=== PATIENT | female | born 2000 | race Caucasian/White ===

== ENCOUNTER 2021-04-03 20:16 | Emergency (ER) | payer BC, SELFPAY ==
[2021-04-03] MEDS ORDERED: LIDOCAINE 1% MPF 5 ML VIAL ONE (21:24)
--- NOTE | 2021-04-04 12:03 | ER ---
Nurse's Notes [facility] Name: Rafaela Cabezas Age: 20 yrs Sex: Female : 2000 Arrival Date: 04/03/2021 Time: 20:34 Bed 6 Private MD: Diagnosis: Laceration with foreign body of left thumb without damage to nail Presentation: 04/03 20:37 Chief complaint: Patient states: lac to thumb (left hand), was cutting carrots. sj1 bleeding controlled, reports tetanus in last 5 yrs. Coronavirus screen: Vaccine status: Patient reports being unvaccinated. Ebola Screen: No symptoms or risks identified at this time. Complicating Factors: lac. Initial Sepsis Screen: Does the patient meet any 2 criteria? No. Patient's initial sepsis screen is negative. Does the patient have a suspected source of infection? No. Patient's initial sepsis screen is negative. Risk Assessment: Do you want to hurt yourself or someone else? Patient reports no desire to harm self or others. Onset of symptoms was April 03, 2021. 20:37 Method Of Arrival: Ambulatory [facility] 20:37 Acuity: CHRISTINA 4 sj1 Triage Assessment: 20:39 General: Appears in no apparent distress. Behavior is calm, cooperative, appropriate sj1 for age. Pain: Complains of pain in thumb, left hand. Injury Description: Laceration sustained to thumb, left hand. 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 - Social history:: Smoking status: Patient denies any tobacco usage or history of. Patient/guardian denies using alcohol, street drugs. Screenin:41 Abuse screen: Denies threats or abuse. Denies injuries from another. Has been sj1 threatened or abused. Nutritional screening: No deficits noted. Tuberculosis screening: No symptoms or risk factors identified. Fall Risk None identified. Assessment: 20:41 Musculoskeletal: No signs and/or symptoms reported regarding the musculoskeletal system.sj1 21:58 Injury Description: Laceration is clean. df1 Vital Signs: 20:37 BP 138 / 81; Pulse 67; Resp 16; Temp 98.1(O); Pulse Ox 99% on R/A; Weight 90.72 kg (R); sj1 Height 5 ft. 8 in. (172.72 cm) (R); Pain 5/10; 21:00 BP 130 / 75; Pulse 65; Resp 18; Pulse Ox 100% on R/A; df1 20:37 Body Mass Index 30.41 (90.72 kg, 172.72 cm) sj1 ED Course: 20:34 Patient arrived in ED. bp1 20:39 Triage completed. sj1 20:41 Patient has correct armband on for positive identification. sj1 20:41 Arm band placed on. sj1 20:42 Maciej Leary NP is PHCP. pm1 20:42 Hakan Varela MD is Attending Physician. pm1 20:56 Fernanda Dunn is Primary Nurse. df1 21:14 Assist provider with laceration repair on left thumb that was 2.5 cm. or less using df1 sutures. Set up tray. Performed by Maciej Leary TRANSFER MACHINE OPERATOR Dressed with band aid, Neosporin, Patient tolerated well. Patient did not have IV access during this emergency room visit. Administered Medications: 21:14 Drug: Lidocaine (1 %) 5 ml Volume: 5 ml; Route: Infiltration; Site: affected area; df1 Outcome: 21:35 Discharge ordered by . pm1 21:57 Discharged to home df1 21:57 Condition: stable 21:57 Discharge instructions given to patient, significant other, Instructed on discharge instructions, follow up and referral plans. medication usage, Demonstrated understanding of instructions, follow-up care, medications, Prescriptions given X 1. 22:01 Patient left the ED. tt3 Signatures: Maciej Leary NP TRANSFER MACHINE OPERATOR pm1 Jannet Cruz bp1 Maycol Quarles tt3 Fernanda Dunn df1 Laverne Barry RN RN sj1
--- NOTE | 2021-04-04 12:04 | EDPHYS ---
Physician Documentation [facility] Name: Rafaela Cabezas Age: 20 yrs Sex: Female : 2000 Arrival Date: 04/03/2021 Time: 20:34 Bed 6 Private MD: ED Physician Hakan Varela HPI: 04/03 20:54 This 20 yrs old Female presents to ER via Ambulatory with complaints of pm1 Laceration To Hand. 20:54 The patient has a laceration occurred at home. The laceration(s) is(are) located on the pm1 left thumb. 20:54 Onset: The symptoms/episode began/occurred just prior to arrival. Associated signs and pm1 symptoms: Pertinent negatives: deformity, heavy bleeding, numbness distal to injury, suspected foreign body. The patient has not experienced similar symptoms in the past. The patient has not recently seen a physician. Patient cut left thumb with a knife while cutting carrots. 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 - Social history:: Smoking status: Patient denies any tobacco usage or history of. Patient/guardian denies using alcohol, street drugs. ROS: 20:54 Constitutional: Negative for fever, chills, and weight loss. pm1 20:54 Cardiovascular: Negative for chest pain, palpitations, and edema, Respiratory: Negative for shortness of breath, cough, wheezing, and pleuritic chest pain. 20:54 Neuro: Negative for headache, weakness, numbness, tingling, and seizure. 20:54 MS/extremity: Positive for laceration, of the left thumb. 20:54 Skin: Positive for laceration(s), of the left thumb. 20:54 All other systems are negative. Exam: 20:54 Constitutional: This is a well developed, well nourished patient who is awake, alert, pm1 and in no acute distress. Head/Face: Normocephalic, atraumatic. 20:54 Cardiovascular: Exam negative for acute changes, Rate: normal, Rhythm: regular, Pulses: no pulse deficits are appreciated. 20:54 Respiratory: Exam negative for acute changes, respiratory distress, shortness of breath. 20:54 Skin: injury, laceration(s), the wound is approximately 1 cm(s), with a depth of 0.5 cm(s), of the left thumb, that can be described as clean, no foreign body, irregular, with mild bleeding, at the palmar tip of left thumb. 20:54 Neuro: Exam negative for acute changes, Orientation: is normal, Mentation: is normal, Motor: is normal, moves all fours, Sensation: no obvious gross deficits. Vital Signs: 20:37 BP 138 / 81; Pulse 67; Resp 16; Temp 98.1(O); Pulse Ox 99% on R/A; Weight 90.72 kg (R); sj1 Height 5 ft. 8 in. (172.72 cm) (R); Pain 5/10; 21:00 BP 130 / 75; Pulse 65; Resp 18; Pulse Ox 100% on R/A; df1 20:37 Body Mass Index 30.41 (90.72 kg, 172.72 cm) sj Laceration: 21:30 Wound Repair of 1cm ( 0.4in ) subcutaneous laceration to palmar aspect of distal pm1 phalanx of left thumb. Irregularly shaped.. Distal neuro/vascular/tendon intact. Anesthesia: Digital block administered with 2 mls of 1% lidocaine. Wound prep: Extensive cleansing with hibiclenz by me, Wound irrigation with saline by me, Wound explored extensively, Copious irrigation. Skin closed with 4 5-0 Prolene using simple sutures and sterile technique. Dressed with Neosporin, 4x4's. Patient tolerated well. MDM: 20:42 Patient medically screened. pm1 21:34 Data reviewed: vital signs. Data interpreted: Pulse oximetry: on room air is 99 %. pm1 Interpretation: normal. Counseling: I had a detailed discussion with the patient and/or guardian regarding: the historical points, exam findings, and any diagnostic results supporting the discharge/admit diagnosis, the need for outpatient follow up, to return to the emergency department if symptoms worsen or persist or if there are any questions or concerns that arise at home. 04/03 20:47 Order name: Dressing - Wound; Complete Time: 21:08 pm1 04/03 20:47 Order name: Gloves, Sterile; Complete Time: 21:08 pm1 04/03 20:47 Order name: Prolene, Sutures; Complete Time: 21:08 pm1 04/03 20:47 Order name: Setup Suture Tray; Complete Time: 21:08 pm1 Administered Medications: 21:14 Drug: Lidocaine (1 %) 5 ml Volume: 5 ml; Route: Infiltration; Site: affected area; df1 Disposition: 04/04 08:44 Co-signature as Attending Physician, Hakan Varela MD I agree with the assessment and jennifer plan of care. Chart complete. Disposition Summary: 04/03/21 21:35 Discharge Ordered Location: Home pm1 Problem: new pm1 Symptoms: have improved pm1 Condition: Stable pm1 Diagnosis - Laceration with foreign body of left thumb without damage to nail pm1 Followup: pm1 - With: Emergency Department - When: As needed - Reason: Worsening of condition Followup: pm1 - With: Private Physician - When: 10 - 14 days - Reason: Recheck today's complaints, Continuance of care, Staple/Suture removal, Re-evaluation by your physician Discharge Instructions: - Discharge Summary Sheet pm1 - Laceration Care, Adult pm1 Forms: - Medication Reconciliation Form pm1 - Thank You Letter pm1 - Antibiotic Education pm1 - Prescription Opioid Use pm1 Prescriptions: - Cephalexin 500 mg Oral Capsule - take 1 capsule by ORAL route every 12 hours for 10 days; 20 capsule; Refills: pm1 0, Product Selection Permitted Signatures: Hakan Varela MD MD cha Marinas, Patrick, NP CARD MAKER pm1 Fernanda Dunn df1 Laverne Barry RN RN sj1 Corrections: (The following items were deleted from the chart) 04/03 21:33 20:54 The laceration(s) is(are) located on the right thumb, pm1 pm1
[2021-04-04 12:08] VITALS: TEMP 98.1
[2021-04-04 12:09] VITALS: BP 130/75; O2SAT 100
== END 2021-04-03 22:01 | disposition home or self-care (01) ==
LOC: ER 20:16
PROC: 0JQK0ZZ Repair Left Hand Subcutaneous Tissue and Fascia, Open Approach (ICD-10-PCS; principal; 2021-04-03)
DX: S61.012A Laceration without foreign body of left thumb without damage to nail, initial encounter (principal); W26.0XXA Contact with knife, initial encounter; Y93.G3 Activity, cooking and baking; Y92.010 Kitchen of single-family (private) house as the place of occurrence of the external cause
CPT/HCPCS: 99283

== ENCOUNTER 2024-09-15 19:50 | Emergency (ER) | payer BC, OTHER ==
--- OUTSIDE RECORDS SUMMARY | 2024-09-15 19:55 | XMS REPORT | Continuity of Care Document ---
Author Name Unknown Address [address] [facility] [address] [place] [address] [facility] Address [address] [facility] [address] [place] [address] Care Team Providers Care Associate Drafter Name Role Phone Greta HiZaria Primary Care Physician [phone] Rosa Elena Mendiola Attending Clinician Unavailab Flori Celeste Attending Clinician Unavailable Flori Akins Attending Clinician [phone] BARBARA BAILEY Attending Clinician Unavailable Barbara Bailey PA-C Attending Clinician [phone] Unknown, Attending Attending Clinician Unavailab le GRAIR_D Attending Clinician Unavailable Doctor Unassigned, [place] Attending Clinician Natalie Lomax Attending Clinician Unavailab le GRAIR_D Admitting Clinician Unavailable Payers Payer Name Policy Type Policy Number Effective Date Expirati on Date Source Problems Condition Name Condition Details Condition Category Status Onset Date Resolution Date Last Treatment Date Treating Clinician Comments Source Encounter for surveillan ce of nuvaring Encounter for surveillan ce of nuvaring Disease Active 09-29 00:00: 00 Overview: Formattin g of this note might be different from the original. Nuvaring started in July 2018. [facility] Major depressive disorder Major depressive disorder Disease Active 09-29 00:00: 00 Overview: Formattin g of this note might be different from the original. 09/29/18 - referral to anna fay [facility] Allergies, Adverse Reactions, Alerts Allergy Name Allergy Type Status Severity Reaction(s) Onset Date Inactive Date Treating Clinician Comments Source No Known Drug Allergie s DA Active U 07-26 00:00: 00 [facility] cinnamon DA Active U Swelling of Lip/Tongue/T hroat 07-26 00:00: 00 [facility] almond DA Active U Swelling of Lip/Tongue/T hroat 07-26 00:00: 00 [facility] NO KNOWN ALLERGIE S Drug Class Active [facility] Social History Social Habit Start Date Stop Date Quantity Comments Source History of tobacco use [facility]ive [facility]oker [facility] of Social function 2018-12-18 00:00:00 2018-12-18 00:00:00 [facility] Alcohol intake 2018-10-17 00:00:00 2018-10-17 00:00:00 Current non-drinker of alcohol (finding) [facility] Alcoholic beverage intake 2017-03-14 00:00:00 2017-03-14 00:00:00 0 /d [facility] Tobacco use and exposure 2015-05-11 00:00:00 2015-05-11 00:00:00 Smokeless tobacco non-user [facility] Tobacco Comment 2015-05-11 00:00:00 2015-05-11 00:00:00 Step-father smokes outside [facility] Sex assigned at 2000 00:00:00 2000 00:00:00 [facility] Smoking Status Start Date Stop Date Source Never smoked tobacco [facility] Medications Ordered Medication Name Filled Medication Name Start Date Stop Date Current Medication? Ordering Clinician Indication Dosage Frequency Signature (SIG) Comments Components Source amoxicillin -clavulanat e (AUGMENTIN) 875-125 mg per tablet 11-06 00:00: 00 Yes [id number] 1{tbl} Take 1 tablet by mouth in the morning and 1 tablet in the evening. [facility] NUVARING 0.12-0.015 mg/24 hr vaginal insert 08-26 00:00: 00 Yes INSERT 1 RING VAINALLY AND LEAVE IN PLACE FOR 3 WEEKS THEN REMOVE FOR 1 WEEK [facility] naproxen (EC-NAPROSY N) 375 mg EC tablet 02-02 00:00: 00 Yes 375mg Take 1 tablet by mouth 2 (two) times daily with meals. [facility] Immunizations Ordered Immunization Name Filled Immunization Name Date Status Comments Source TDAP 2023-11-07 12:43:00 Completed [facility] TDAP 2023-11-07 11:18:06 Completed [facility] TDAP 2023-11-07 10:40:00 Completed [facility] Vital Signs Vital Name Observation Time Observation Value Comments S ource Systolic blood pressure 2023-11-07 18:21:00 125 mm[Hg] [facility] Diastolic blood pressure 2023-11-07 18:21:00 83 mm[Hg] [facility] Heart rate 2023-11-07 18:21:00 62 /min [facility] Body temperature 2023-11-07 18:21:00 36.89 Minda [facility] Respiratory rate 2023-11-07 18:21:00 15 /min [facility] Oxygen saturation in Arterial blood by Pulse oximetry 2023-11-07 18:21:00 98 /min [facility] Body height 2023-11-07 17:42:00 175.3 cm [facility] Body weight 2023-11-07 17:42:00 90.719 kg [facility] BMI 2023-11-07 17:42:00 29.53 kg/m2 [facility] Oxygen saturation in Arterial blood by Pulse oximetry 2023-11-07 16:09:00 98 /min [facility] Systolic blood pressure 2023-11-07 16:09:00 136 mm[Hg] [facility] Diastolic blood pressure 2023-11-07 16:09:00 85 mm[Hg] Tell o [facility] Heart rate 2023-11-07 16:09:00 65 /min [facility] 2023-11-07 16:09:00 37 Minda [facility] Respiratory rate 2023-11-07 16:09:00 18 /min [facility] Body height 2023-11-07 16:09:00 175.3 cm [facility] Body weight 2023-11-07 16:09:00 90.719 kg [facility] BMI 2023-11-07 16:09:00 29.53 kg/m2 [facility] KHADIJAH CHARGE Pulse Oximetry 2020-08-01 18:32:38 Single Pulse Ox /min NB Weight 2020-08-01 18:32:38 2630.836\S\92.8 Have you Lost Weight Without Trying in the Past 6 Months? 2020-08-01 18:32:38 No Heart Rate 2020-08-01 18:32:38 125 /min Attempted 2020-08-01 18:32:38 N Respiratory 2020-08-01 18:32:38 No respirato ry distress /min 02 Sat by Pulse Oximetry 2020-08-01 18:32:38 98 /min Body Mass Index 2020-08-01 18:32:38 34.5 Height 2020-08-01 18:32:38 170.18\S\67 Pulse Rate 2020-08-01 18:32:38 72 /min Pulse Strength 2020-08-01 18:32:38 Normal /min Pulse Assessment Method 2020-08-01 18:32:38 Auscultation /min Respiratory Rate 2020-08-01 18:32:38 19 /min Respiratory Depth 2020-08-01 18:32:38 Normal /min Respiratory Effort 2020-08-01 18:32:38 Spontaneous /min Respiratory Pattern 2020-08-01 18:32:38 Normal /min Temperature 2020-08-01 18:32:38 36.9\S\98.4 Weight 2020-08-01 18:32:38 92622.321\S\3520 Weight Measurement Method 2020-08-01 18:32:38 Standing Scale NB Weight 2020-07-30 17:59:41 2630.836\S\92.8 Have you Lost Weight Without Trying in the Past 6 Months? 2020-07-30 17:59:41 No Heart Rate 2020-07-30 17:59:41 125 /min Attempted 2020-07-30 17:59:41 N Respiratory 2020-07-30 17:59:41 No respirato ry distress /min 02 Sat by Pulse Oximetry 2020-07-30 17:59:41 98 /min Body Mass Index 2020-07-30 17:59:41 34.5 Height 2020-07-30 17:59:41 170.18\S\67 Pulse Rate 2020-07-30 17:59:41 72 /min Pulse Strength 2020-07-30 17:59:41 Normal /min Pulse Assessment Method 2020-07-30 17:59:41 Auscultation /min Respiratory Rate 2020-07-30 17:59:41 19 /min Respiratory Depth 2020-07-30 17:59:41 Normal /min Respiratory Effort 2020-07-30 17:59:41 Spontaneous /min Respiratory Pattern 2020-07-30 17:59:41 Normal /min Temperature 2020-07-30 17:59:41 36.9\S\98.4 Weight 2020-07-30 17:59:41 24330.321\S\3520 Weight Measurement Method 2020-07-30 17:59:41 Standing Scale NB Weight 2020-07-30 17:59:40 2630.836\S\92.8 Have you Lost Weight Without Trying in the Past 6 Months? 2020-07-30 17:59:40 No Heart Rate 2020-07-30 17:59:40 125 /min Attempted 2020-07-30 17:59:40 N Respiratory 2020-07-30 17:59:40 No respirato ry distress /min 02 Sat by Pulse Oximetry 2020-07-30 17:59:40 98 /min Body Mass Index 2020-07-30 17:59:40 34.5 Height 2020-07-30 17:59:40 170.18\S\67 Pulse Rate 2020-07-30 17:59:40 72 /min Pulse Strength 2020-07-30 17:59:40 Normal /min Pulse Assessment Method 2020-07-30 17:59:40 Auscultation /min Respiratory Rate 2020-07-30 17:59:40 19 /min Respiratory Depth 2020-07-30 17:59:40 Normal /min Respiratory Effort 2020-07-30 17:59:40 Spontaneous /min Respiratory Pattern 2020-07-30 17:59:40 Normal /min Temperature 2020-07-30 17:59:40 36.9\S\98.4 Weight 2020-07-30 17:59:40 30188.321\S\3520 Weight Measurement Method 2020-07-30 17:59:40 Standing Scale KHADIJAH CHARGE Pulse Oximetry 2020-07-30 17:59:40 Single Pulse Ox /min KHADIJAH CHARGE Pulse Oximetry 2020-07-30 16:58:54 Single Pulse Ox /min NB Weight 2020-07-30 16:58:54 2630.836\S\92.8 Have you Lost Weight Without Trying in the Past 6 Months? 2020-07-30 16:58:54 No Heart Rate 2020-07-30 16:58:54 125 /min Attempted 2020-07-30 16:58:54 N Respiratory 2020-07-30 16:58:54 No respirato ry distress /min 02 Sat by Pulse Oximetry 2020-07-30 16:58:54 98 /min Body Mass Index 2020-07-30 16:58:54 34.5 Height 2020-07-30 16:58:54 170.18\S\67 Pulse Rate 2020-07-30 16:58:54 72 /min Pulse Strength 2020-07-30 16:58:54 Normal /min Pulse Assessment Method 2020-07-30 16:58:54 Auscultation /min Respiratory Rate 2020-07-30 16:58:54 19 /min Respiratory Depth 2020-07-30 16:58:54 Normal /min Respiratory Effort 2020-07-30 16:58:54 Spontaneous /min Respiratory Pattern 2020-07-30 16:58:54 Normal /min Temperature 2020-07-30 16:58:54 36.9\S\98.4 Weight 2020-07-30 16:58:54 09660.321\S\3520 Weight Measurement Method 2020-07-30 16:58:54 Standing Scale KHADIJAH CHARGE Pulse Oximetry 2020-07-29 13:59:12 Single Pulse Ox /min NB Weight 2020-07-29 13:59:12 2630.836\S\92.8 Have you Lost Weight Without Trying in the Past 6 Months? 2020-07-29 13:59:12 No Heart Rate 2020-07-29 13:59:12 125 /min Attempted 2020-07-29 13:59:12 N Respiratory 2020-07-29 13:59:12 No respirato ry distress /min 02 Sat by Pulse Oximetry 2020-07-29 13:59:12 97 /min Body Mass Index 2020-07-29 13:59:12 34.5 Height 2020-07-29 13:59:12 170.18\S\67 Pulse Rate 2020-07-29 13:59:12 68 /min Pulse Strength 2020-07-29 13:59:12 Normal /min Pulse Assessment Method 2020-07-29 13:59:12 Auscultation /min Respiratory Rate 2020-07-29 13:59:12 18 /min Respiratory Depth 2020-07-29 13:59:12 Normal /min Respiratory Effort 2020-07-29 13:59:12 Normal fo r Patient /min Respiratory Pattern 2020-07-29 13:59:12 Normal /min Temperature 2020-07-29 13:59:12 36.6\S\97.9 Weight 2020-07-29 13:59:12 19057.321\S\3520 Weight Measurement Method 2020-07-29 13:59:12 Standing Scale KHADIJAH CHARGE Pulse Oximetry 2020-07-29 13:14:41 Single Pulse Ox /min NB Weight 2020-07-29 13:14:41 2630.836\S\92.8 Have you Lost Weight Without Trying in the Past 6 Months? 2020-07-29 13:14:41 No Heart Rate 2020-07-29 13:14:41 125 /min Attempted 2020-07-29 13:14:41 N Respiratory 2020-07-29 13:14:41 No respirato ry distress /min 02 Sat by Pulse Oximetry 2020-07-29 13:14:41 97 /min Body Mass Index 2020-07-29 13:14:41 34.5 Height 2020-07-29 13:14:41 170.18\S\67 Pulse Rate 2020-07-29 13:14:41 68 /min Pulse Strength 2020-07-29 13:14:41 Normal /min Pulse Assessment Method 2020-07-29 13:14:41 Auscultation /min Respiratory Rate 2020-07-29 13:14:41 18 /min Respiratory Depth 2020-07-29 13:14:41 Normal /min Respiratory Effort 2020-07-29 13:14:41 Normal fo r Patient /min Respiratory Pattern 2020-07-29 13:14:41 Normal /min Temperature 2020-07-29 13:14:41 36.6\S\97.9 Weight 2020-07-29 13:14:41 34416.321\S\3520 Weight Measurement Method 2020-07-29 13:14:41 Standing Scale KHADIJAH CHARGE Pulse Oximetry 2020-07-28 22:24:53 Single Pulse Ox /min NB Weight 2020-07-28 22:24:53 2630.836\S\92.8 Have you Lost Weight Without Trying in the Past 6 Months? 2020-07-28 22:24:53 No Heart Rate 2020-07-28 22:24:53 125 /min Attempted 2020-07-28 22:24:53 N Respiratory 2020-07-28 22:24:53 No respirato ry distress /min 02 Sat by Pulse Oximetry 2020-07-28 22:24:53 99 /min Body Mass Index 2020-07-28 22:24:53 34.5 Height 2020-07-28 22:24:53 170.18\S\67 Pulse Rate 2020-07-28 22:24:53 74 /min Pulse Strength 2020-07-28 22:24:53 Normal /min Pulse Assessment Method 2020-07-28 22:24:53 Auscultation /min Respiratory Rate 2020-07-28 22:24:53 18 /min Respiratory Depth 2020-07-28 22:24:53 Normal /min Respiratory Effort 2020-07-28 22:24:53 Spontaneous /min Respiratory Pattern 2020-07-28 22:24:53 Normal /min Temperature 2020-07-28 22:24:53 36.7\S\98.1 Weight 2020-07-28 22:24:53 98818.321\S\3520 Weight Measurement Method 2020-07-28 22:24:53 Standing Scale KHADIJAH CHARGE Pulse Oximetry 2020-07-28 20:21:41 Single Pulse Ox /min NB Weight 2020-07-28 20:21:41 2630.836\S\92.8 Have you Lost Weight Without Trying in the Past 6 Months? 2020-07-28 20:21:41 No Heart Rate 2020-07-28 20:21:41 125 /min Attempted 2020-07-28 20:21:41 N Respiratory 2020-07-28 20:21:41 No respirato ry distress /min Body Mass Index 2020-07-28 20:21:41 34.5 Height 2020-07-28 20:21:41 170.18\S\67 Pulse Strength 2020-07-28 20:21:41 Normal /min Pulse Assessment Method 2020-07-28 20:21:41 Auscultation /min Respiratory Rate 2020-07-28 20:21:41 16 /min Respiratory Depth 2020-07-28 20:21:41 Normal /min Respiratory Effort 2020-07-28 20:21:41 Spontaneous /min Respiratory Pattern 2020-07-28 20:21:41 Normal /min Temperature 2020-07-28 20:21:41 98.5\S\209.3 Weight 2020-07-28 20:21:41 07175.321\S\3520 Weight Measurement Method 2020-07-28 20:21:41 Standing Scale KHADIJAH CHARGE Pulse Oximetry 2020-07-28 17:18:01 Single Pulse Ox /min Have you Lost Weight Without Trying in the Past 6 Months? 2020-07-28 17:18:01 No Heart Rate 2020-07-28 17:18:01 125 /min Respiratory 2020-07-28 17:18:01 No respirato ry distress /min Body Mass Index 2020-07-28 17:18:01 34.5 Height 2020-07-28 17:18:01 170.18\S\67 Pulse Strength 2020-07-28 17:18:01 Normal /min Pulse Assessment Method 2020-07-28 17:18:01 Auscultation /min Respiratory Rate 2020-07-28 17:18:01 18 /min Respiratory Depth 2020-07-28 17:18:01 Normal /min Respiratory Effort 2020-07-28 17:18:01 Spontaneous /min Respiratory Pattern 2020-07-28 17:18:01 Normal /min Temperature 2020-07-28 17:18:01 37.3\S\99.1 Weight 2020-07-28 17:18:01 75761.321\S\3520 Weight Measurement Method 2020-07-28 17:18:01 Standing Scale KHADIJAH CHARGE Pulse Oximetry 2020-07-28 16:02:09 Single Pulse Ox /min Have you Lost Weight Without Trying in the Past 6 Months? 2020-07-28 16:02:09 No Heart Rate 2020-07-28 16:02:09 125 /min Respiratory 2020-07-28 16:02:09 No respirato ry distress /min Body Mass Index 2020-07-28 16:02:09 34.5 Height 2020-07-28 16:02:09 170.18\S\67 Pulse Strength 2020-07-28 16:02:09 Normal /min Pulse Assessment Method 2020-07-28 16:02:09 Auscultation /min Respiratory Rate 2020-07-28 16:02:09 18 /min Respiratory Depth 2020-07-28 16:02:09 Normal /min Respiratory Effort 2020-07-28 16:02:09 Spontaneous /min Respiratory Pattern 2020-07-28 16:02:09 Normal /min Temperature 2020-07-28 16:02:09 37.3\S\99.1 Weight 2020-07-28 16:02:09 96670.321\S\3520 Weight Measurement Method 2020-07-28 16:02:09 Standing Scale Heart Rate 2020-07-28 16:01:38 125 /min Respiratory 2020-07-28 16:01:38 No respirato ry distress /min Body Mass Index 2020-07-28 16:01:38 34.5 Height 2020-07-28 16:01:38 170.18\S\67 Pulse Strength 2020-07-28 16:01:38 Normal /min Pulse Assessment Method 2020-07-28 16:01:38 Auscultation /min Respiratory Rate 2020-07-28 16:01:38 18 /min Respiratory Depth 2020-07-28 16:01:38 Normal /min Respiratory Effort 2020-07-28 16:01:38 Spontaneous /min Respiratory Pattern 2020-07-28 16:01:38 Normal /min Temperature 2020-07-28 16:01:38 37.3\S\99.1 Weight 2020-07-28 16:01:38 20326.321\S\3520 Weight Measurement Method 2020-07-28 16:01:38 Standing Scale KHADIJAH CHARGE Pulse Oximetry 2020-07-28 16:01:37 Single Pulse Ox /min Have you Lost Weight Without Trying in the Past 6 Months? 2020-07-28 16:01:37 No KHADIJAH CHARGE Pulse Oximetry 2020-07-28 16:00:33 Single Pulse Ox /min Have you Lost Weight Without Trying in the Past 6 Months? 2020-07-28 16:00:33 No Heart Rate 2020-07-28 16:00:33 125 /min Respiratory 2020-07-28 16:00:33 No respirato ry distress /min Body Mass Index 2020-07-28 16:00:33 34.5 Height 2020-07-28 16:00:33 170.18\S\67 Pulse Strength 2020-07-28 16:00:33 Normal /min Pulse Assessment Method 2020-07-28 16:00:33 Auscultation /min Respiratory Rate 2020-07-28 16:00:33 18 /min Respiratory Depth 2020-07-28 16:00:33 Normal /min Respiratory Effort 2020-07-28 16:00:33 Spontaneous /min Respiratory Pattern 2020-07-28 16:00:33 Normal /min Temperature 2020-07-28 16:00:33 37.3\S\99.1 Weight 2020-07-28 16:00:33 88547.321\S\3520 Weight Measurement Method 2020-07-28 16:00:33 Standing Scale KHADIJAH CHARGE Pulse Oximetry 2020-07-28 11:18:03 Single Pulse Ox /min Have you Lost Weight Without Trying in the Past 6 Months? 2020-07-28 11:18:03 No Heart Rate 2020-07-28 11:18:03 125 /min Respiratory 2020-07-28 11:18:03 No respirato ry distress /min Body Mass Index 2020-07-28 11:18:03 34.5 Height 2020-07-28 11:18:03 170.18\S\67 Pulse Strength 2020-07-28 11:18:03 Normal /min Pulse Assessment Method 2020-07-28 11:18:03 Auscultation /min Respiratory Rate 2020-07-28 11:18:03 20 /min Respiratory Depth 2020-07-28 11:18:03 Normal /min Respiratory Effort 2020-07-28 11:18:03 Spontaneous /min Respiratory Pattern 2020-07-28 11:18:03 Normal /min Temperature 2020-07-28 11:18:03 36.7\S\98.0 Weight 2020-07-28 11:18:03 87549.321\S\3520 Weight Measurement Method 2020-07-28 11:18:03 Standing Scale KHADIJAH CHARGE Pulse Oximetry 2020-07-28 11:17:02 Single Pulse Ox /min Have you Lost Weight Without Trying in the Past 6 Months? 2020-07-28 11:17:02 No Heart Rate 2020-07-28 11:17:02 125 /min Respiratory 2020-07-28 11:17:02 No respirato ry distress /min Body Mass Index 2020-07-28 11:17:02 34.5 Height 2020-07-28 11:17:02 170.18\S\67 Pulse Strength 2020-07-28 11:17:02 Normal /min Pulse Assessment Method 2020-07-28 11:17:02 Auscultation /min Respiratory Rate 2020-07-28 11:17:02 20 /min Respiratory Depth 2020-07-28 11:17:02 Normal /min Respiratory Effort 2020-07-28 11:17:02 Spontaneous /min Respiratory Pattern 2020-07-28 11:17:02 Normal /min Temperature 2020-07-28 11:17:02 36.7\S\98.0 Weight 2020-07-28 11:17:02 26276.321\S\3520 Weight Measurement Method 2020-07-28 11:17:02 Standing Scale Have you Lost Weight Without Trying in the Past 6 Months? 2020-07-27 15:48:11 No Respiratory 2020-07-27 15:48:11 No respirato ry distress /min Body Mass Index 2020-07-27 15:48:11 34.5 Height 2020-07-27 15:48:11 170.18\S\67 Pulse Strength 2020-07-27 15:48:11 Normal /min Pulse Assessment Method 2020-07-27 15:48:11 Auscultation /min Respiratory Depth 2020-07-27 15:48:11 Normal /min Respiratory Effort 2020-07-27 15:48:11 Spontaneous /min Respiratory Pattern 2020-07-27 15:48:11 Normal /min Weight 2020-07-27 15:48:11 51478.321\S\3520 Weight Measurement Method 2020-07-27 15:48:11 Standing Scale Have you Lost Weight Without Trying in the Past 6 Months? 2020-07-27 06:19:24 No Respiratory 2020-07-27 06:19:24 No respirato ry distress /min Body Mass Index 2020-07-27 06:19:24 34.5 Height 2020-07-27 06:19:24 170.18\S\67 Pulse Strength 2020-07-27 06:19:24 Normal /min Pulse Assessment Method 2020-07-27 06:19:24 Auscultation /min Respiratory Depth 2020-07-27 06:19:24 Normal /min Respiratory Effort 2020-07-27 06:19:24 Spontaneous /min Respiratory Pattern 2020-07-27 06:19:24 Normal /min Weight 2020-07-27 06:19:24 67063.321\S\3520 Weight Measurement Method 2020-07-27 06:19:24 Standing Scale Respiratory 2020-07-27 02:59:13 No respirato ry distress /min Body Mass Index 2020-07-27 02:59:13 34.5 Height 2020-07-27 02:59:13 170.18\S\67 Pulse Strength 2020-07-27 02:59:13 Normal /min Pulse Assessment Method 2020-07-27 02:59:13 Auscultation /min Respiratory Depth 2020-07-27 02:59:13 Normal /min Respiratory Effort 2020-07-27 02:59:13 Spontaneous /min Respiratory Pattern 2020-07-27 02:59:13 Normal /min Weight 2020-07-27 02:59:13 77826.321\S\3520 Weight Measurement Method 2020-07-27 02:59:13 Standing Scale Have you Lost Weight Without Trying in the Past 6 Months? 2020-07-27 02:59:12 No Have you Lost Weight Without Trying in the Past 6 Months? 2020-07-27 00:18:07 No Respiratory 2020-07-27 00:18:07 No respirato ry distress /min Body Mass Index 2020-07-27 00:18:07 34.5 Height 2020-07-27 00:18:07 170.18\S\67 Pulse Strength 2020-07-27 00:18:07 Normal /min Pulse Assessment Method 2020-07-27 00:18:07 Auscultation /min Respiratory Depth 2020-07-27 00:18:07 Normal /min Respiratory Effort 2020-07-27 00:18:07 Spontaneous /min Respiratory Pattern 2020-07-27 00:18:07 Normal /min Weight 2020-07-27 00:18:07 79861.321\S\3520 Weight Measurement Method 2020-07-27 00:18:07 Standing Scale Respiratory 2020-07-26 23:58:27 No respirato ry distress /min Body Mass Index 2020-07-26 23:58:27 34.5 Height 2020-07-26 23:58:27 170.18\S\67 Pulse Strength 2020-07-26 23:58:27 Normal /min Pulse Assessment Method 2020-07-26 23:58:27 Auscultation /min Respiratory Depth 2020-07-26 23:58:27 Normal /min Respiratory Effort 2020-07-26 23:58:27 Spontaneous /min Respiratory Pattern 2020-07-26 23:58:27 Normal /min Weight 2020-07-26 23:58:27 01237.321\S\3520 Weight Measurement Method 2020-07-26 23:58:27 Standing Scale Have you Lost Weight Without Trying in the Past 6 Months? 2020-07-26 23:58:27 No Have you Lost Weight Without Trying in the Past 6 Months? 2020-07-26 23:57:57 No Respiratory 2020-07-26 23:57:57 No respirato ry distress /min Body Mass Index 2020-07-26 23:57:57 34.5 Height 2020-07-26 23:57:57 170.18\S\67 Pulse Strength 2020-07-26 23:57:57 Normal /min Pulse Assessment Method 2020-07-26 23:57:57 Auscultation /min Respiratory Depth 2020-07-26 23:57:57 Normal /min Respiratory Effort 2020-07-26 23:57:57 Spontaneous /min Respiratory Pattern 2020-07-26 23:57:57 Normal /min Weight 2020-07-26 23:57:57 34746.321\S\3520 Weight Measurement Method 2020-07-26 23:57:57 Standing Scale Have you Lost Weight Without Trying in the Past 6 Months? 2020-07-26 23:51:19 No Respiratory 2020-07-26 23:51:19 No respirato ry distress /min Body Mass Index 2020-07-26 23:51:19 34.5 Height 2020-07-26 23:51:19 170.18\S\67 Pulse Strength 2020-07-26 23:51:19 Normal /min Pulse Assessment Method 2020-07-26 23:51:19 Auscultation /min Respiratory Depth 2020-07-26 23:51:19 Normal /min Respiratory Effort 2020-07-26 23:51:19 Spontaneous /min Respiratory Pattern 2020-07-26 23:51:19 Normal /min Weight 2020-07-26 23:51:19 78662.321\S\3520 Weight Measurement Method 2020-07-26 23:51:19 Standing Scale WEIGHT 2020-07-26 22:05:00 99.947803 kg HEIGHT 2020-07-26 22:05:00 170.18 cm Respiratory 2020-07-26 21:20:16 No respirato ry distress /min Body Mass Index 2020-07-26 21:20:16 34.4 Height 2020-07-26 21:20:16 170.18\S\67 Respiratory Depth 2020-07-26 21:20:16 Normal /min Respiratory Effort 2020-07-26 21:20:16 Spontaneous /min Respiratory Pattern 2020-07-26 21:20:16 Normal /min Weight 2020-07-26 21:20:16 05874.321\S\3520 Respiratory 2020-07-26 21:00:17 No respirato ry distress /min Body Mass Index 2020-07-26 21:00:17 34.4 Height 2020-07-26 21:00:17 170.18\S\67 Respiratory Depth 2020-07-26 21:00:17 Normal /min Respiratory Effort 2020-07-26 21:00:17 Spontaneous /min Respiratory Pattern 2020-07-26 21:00:17 Normal /min Weight 2020-07-26 21:00:17 86847.321\S\3520 Body Mass Index 2020-07-26 18:10:15 34.4 Height 2020-07-26 18:10:15 170.18\S\67 Weight 2020-07-26 18:10:15 79746.321\S\3520 Body Mass Index 2020-07-26 18:00:25 34.4 Height 2020-07-26 18:00:25 170.18\S\67 Weight 2020-07-26 18:00:25 95707.321\S\3520 Body Mass Index 2020-07-26 18:00:24 34.4 Height 2020-07-26 18:00:24 170.18\S\67 Weight 2020-07-26 18:00:24 45490.321\S\3520 WEIGHT 2020-07-26 18:00:00 99.116957 kg HEIGHT 2020-07-26 18:00:00 170.18 cm Procedures Procedure Date / Time Performed Performing Clinicia n Source XR HAND 3+ VW LEFT 2023-11-07 16:24:24 Barbara Bailey [facility] TDAP VACCINE, >11 YRS, IM 2023-11-07 16:18:04 Barbara Bailey [facility] CLINIC RECORD / SMR 2020-12-19 05:01:00 Doctor David grossman, [place] [facility] CONSENT/REFUSAL FOR DIAGNOSIS AND TREATMENT 2017-04-24 21:26:09 Doctor Unassigned, [place] [facility] CONSENT/REFUSAL FOR DIAGNOSIS AND TREATMENT 2017-04-24 21:25:54 Doctor Unassigned, [place] [facility] ASSIGNMENT OF BENEFITS 2017-04-24 21:25:25 Docto r Unassigned, [place] [facility] Encounters Start Date/Time End Date/Time Encounter Type Admission Type Attending [facility] Facility Care Department Encounter ID Source 2017-04-24 00:00:00 2024-07-25 03:33:24 Orders Only [phone] [id number] [facility] 2023-11-07 12:43:00 2023-11-07 14:07:00 Emergency X Flori BRITTON [facility] ERT [id number] [facility] 2023-11-07 12:43:00 2023-11-07 14:07:00 Emergency Flori Britton [facility] 1..840.114 [id number] [id number] [facility] 2023-11-07 11:18:06 2023-11-07 12:42:00 Outpatient R BARBARA BAILEY [facility] [id number] [facility] 2023-11-07 11:18:06 2023-11-07 12:42:00 Hospital Encounter [facility] [id number] [id number] [id number] [facility] 2023-11-07 10:40:00 2023-11-07 11:55:02 Urgent Care Barbara Bailey Unknown, Attending [facility] [id number] [id number] [id number] [facility] 2021-11-14 12:29:00 2021-11-14 12:29:00 Outpatient GRAIR_D [place] [facility] [id number] [facility] 2020-12-19 00:00:00 2020-12-19 00:00:00 Orders Only Doctor Unassigned, [place] [facility] [id number] [id number] [id number] [id number] [facility] 2020-07-26 17:56:00 2020-07-26 17:56:00 Outpatient Natalie Woods [facility] [id number] [facility] 2020-07-26 17:56:00 2020-07-26 17:56:00 Outpatient [facility] [id number] [facility] 2019-08-24 15:00:00 2019-08-24 15:00:00 Outpatient BARBARA SALEEM [facility] [id number] [facility] 2019-08-24 15:00:00 2019-08-24 15:00:00 Outpatient BARBARA SALEEM [facility] [id number] [facility] Results Test Description Test Time Test Comments Results Resul t Comments Source XR HAND 3+ VW LEFT 2023-11-07 17:07:36 EXAM: XR HAND 3+ VW LEFT HISTORY: 23 years-old Female with left hand cat bite COMPARISON: None. FINDINGS: Radiographs of the left hand demonstrate no acute fractures ordislocations. Joint spaces are preserved. Alignment is within normallimits. The soft tissues are unremarkable. [facility] Rapid Plasma [id number] 17:15:00* Test Item Value Reference Range Interpretation Comme nts Rapid Plasma Reagin (test co de = RPR) Non-Reactive Non-React Patient Consent on File YHepatitis B Surface [id number] 17:15:00* Test Item Value Reference Range Interpretation Comme nts Hepatitis B Surface Antigen (test code = HBSAG) Non-Reactive NonReactive NormalUnknown fl ag:, (Final Result Ru) Patient Consent on File YHIV AG/AB [id number] 17:15:00* Test Item Value Reference Range Interpretation Comme nts HIV 1/2 AB (test code = HIVAB) Non Reactive Non React HIV p24 AG (test code = HIVAG) Non Reactive Non React Patient Consent on File YLactate [id number] 19:00:00* Test Item Value Reference Range Interpretation Comme nts Lactate Dehydrogenase (test code = LDH) 198 U/L 120-246 N Protein/Creatinine Ratio,[id number] 19:00:00* Test Item Value Reference Range Interpretation Comme nts Total Protein,Urine Random (test code = TPU) mmol/L 1.0-14.0 result to foll ow Creatinine,Urine Random (test code = CREU) 38.6 mg/dL 10.0-300.0 N Protein/Creatinine Ratio,Urine (test code = PROUCRE) Ratio result to follow UA, Urinalysis [id number] 19:00:00* Test Item Value Reference Range Interpretation Comme nts Color,Urine (test code = UCOL) Yellow Yellow Clarity,Urine (test code = UCLAR) Clear Clear PH,Urine (test code = UPH.XX) 6.5 5.5-8.5 Specific [place],Urine (test code = USG) 1.025 1.005-1.030 N Blood,Urine (test code = UBLD) Negative cells/uL Negative Protein,Urine (test code = UPRO) Negative mg/dL Negative Glucose,Urine (UA) (test code = UGLU) Negative mg/dL Negative Ketones,Urine (test code = UKET) 15 mg/dL Negative A Nitrate,Urine (test code = UNIT) Negative Negative Bilirubin,Urine (test code = UBIL) Negative mg/dL Negative Urobilinogen,Urine (test code = UURO) 0.2 mg/dL Negative Leukocyte Esterase,Urine (test code = ULEU) Negative cells/uL Negative Complete Blood Count Auto [id number] 19:00:00* Test Item Value Reference Range Interpretation Comme nts White Blood Count (test code = WBCT) 15.0 x10 3/uL 4.4-10.5 H Red Blood Count (test code = RBC) 4.15 x10 6/uL 3.75-5.20 N Hemoglobin (test code = HGBT) 12.2 g/dL 12.2-14.8 N Hematocrit (test code = HCTT) 36.3 % 36.5-44.4 L Mean Corpuscular Volume (magui t code = MCV) 87.50 fL 80.00-100.00 N Mean Corpuscular Hemoglobin (test code = MCH) 29.4 pg 27.0-32.5 N Mean Corpuscular HGB Conc (test code = MCHC) 33.60 g/dL 32.00-37.50 N RDW Coefficient of Variation (test code = RDWCV) 13.1 % 11.5-14.5 N Platelet Count (test code = PLTT) 224.0 x10 3/uL 140.0-440.0 N Mean Platelet Volume (test code = MPV) 11.8 fL Immature Granulocytes % (Aut o) (test code = IMMGRAN%) 0.6 % 0.0-5.0 N Neutrophils % (Auto) (test code = NE%) 78.2 % 36.0-70.0 H Lymphocytes % (Auto) (test code = LY%) 15.5 % 12.0-44.0 N Monocytes % (Auto) (test cod e = MO%) 5.2 % 0.0-11.0 N Eosinophils % (Auto) (test code = EO%) 0.3 % 0.0-7.0 N Basophils % (Auto) (test cod e = BA%) 0.2 % 0.0-2.0 N Immature Granulocytes # (Aut o) (test code = IMMGRAN#) 0.09 x10 3/uL Neutrophils # (Auto) (test code = NE#) 11.7 x10 3/uL 1.6-7.4 H Lymphocytes # (Auto) (test code = LY#) 2.32 x10 3/uL 0.50-4.60 N Monocytes # (Auto) (test cod e = MO#) 0.78 x10 3/uL 0.00-1.20 N Eosinophils # (Auto) (test code = EO#) 0.05 x10 3/uL 0.00-0.74 N Basophils # (Auto) (test cod e = BA#) 0.03 x10 3/uL 0.00-0.21 N nRBC Abs (test code = NRBCA) 0 nRBC Pct (test code = NRBCP) 0 % Comprehensive Metabolic [id number] 19:00:00* Test Item Value Reference Range Interpretation Comme nts SODIUM (test code = NA) 135.0 mmol/L 136.0-145.0 L Potassium,K (test code = K) 3.7 mmol/L 3.0-5.1 N Chloride (test code = CL) 109 mmol/L 98-107 H Carbon Dioxide (test code = CO2) 20 mmol/L 20-31 N Anion Gap (test code = GAP) 6 mmol/L 5-15 N Blood Urea Nitrogen (test co de = BUN) 9 mg/dL 9-23 N Creatinine (test code = CREATT) 0.43 mg/dL 0.55-1.02 L Creatinine Clr Calc Pharmacy (test code = CRCLPHA) 255.38 mL/min Estimated GFR ( Ameri ca (test code = EGFRAA) > 60 mL/min/1.73m2 Estimated GFR (Non Afr Ameri ca (test code = EGFRNAA) > 60 mL/min/1.73m2 BUN/Creatinine Ratio (test c ode = BCRATIO) 21 ratio 10-20 H Glucose (test code = GLU) 76 mg/dL 74-106 N Osmolality,Calculated (test code = OSMOC) 277.2 Calcium (test code = CA) 9.1 mg/dL 8.3-10.6 N Bilirubin,Total (test code = BILIT) 0.7 mg/dL 0.2-1.1 N Aspartate Amino Transferase (test code = AST) 19 U/L 0-34 N Alanine Aminotransferase (te st code = ALT) 16 U/L 10-49 N Total Protein (test code = TP) 5.6 g/dL 5.7-8.2 L Albumin Level (test code = ALB) 3.8 g/dL 3.2-4.8 N Globulin (test code = GLOB) 1.8 mg/dL 2.3-3.5 L Albumin/Globulin Ratio (test code = AGRATIO) 2.1 ratio 0.8-2.0 H Alkaline Phosphatase (test c ode = ALP) 146 U/L 46-116 H Uric [id number] 19:00:00* Test Item Value Reference Range Interpretation Comme nts Uric Acid (test code = URIC) 3.8 mg/dL 3.1-7.8 N Notes Date/Time Note Provider Source 2023-11-07 13:24:27 Pt discharged with diagnosis of cat bite. Printed and verbal instructions reviewed with and given to pt. Prescriptions given x 0. Pt verbalized understanding of teaching and recommended follow-up. Denies questions or concerns at this time. Pt ambulatory at discharge. Appears in no apparent distress. No ataxia noted. Delisa Breaux RN [facility] 2023-11-07 12:41:35 Patient to ED for cat bite to left arm. 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 Zaid Rodney RN [facility]
[2024-09-15] MEDS ORDERED: KETOROLAC 30 MG/ML INJ ONE (21:17)
[2024-09-15] MEDS ORDERED: DICYCLOMINE HCL 20 MG/2 ML AMP IM ONE (21:17)
[2024-09-15] MEDS ORDERED: ONDANSETRON 4 MG/2 ML VIAL ONE (21:17)
[2024-09-15] MEDS ORDERED: FAMOTIDINE 20 MG/2 ML VIAL IV ONE (21:18)
[2024-09-15] MEDS ORDERED: NA CHLORIDE 0.9% 50 ML ONE (21:18)
[2024-09-15] MEDS ORDERED: METOCLOPRAMIDE 10 MG/2mL INJ ONE (21:18)
[2024-09-15] MEDS ORDERED: NA CHLORIDE 0.9% 1,000 ML ONE (21:18)
[2024-09-15 21:53] LABS: Specific Gravity 1.029 (1.005-1.030); Sqamous Epithelial <5 /HPF (None Seen); Urine Bacteria <20 /HPF (<20); Urine Bilirubin NEGATIVE (Negative); Urine Blood Negative (Negative); Urine Clarity Turbid (Clear); Urine Color Yellow (Yellow); Urine Culture Reflex Order NOT NEEDED; Urine Glucose NEGATIVE (Negative); Urine Ketones 1+ (Negative); Urine Micro Reflex YN NO BILL MICROSCOPIC; Urine Mucus 4+ /HPF (None Seen); Urine Nitrite NEGATIVE (Negative); Urine Protein TRACE (Negative); Urine RBC <5 /HPF (None Seen); Urine Urobilinogen Normal (Normal); Urine WBC Clump Rare /HPF (None Seen)
[2024-09-15 22:20] LABS: Absolute Basophils 0.1 K/uL (0-0.5); Absolute Lymphocytes (CBC) 2.5 K/uL (0.7-4.9); Absolute Monocytes 0.6 K/uL (0.1-1.3); Basophils % 0.9 % (0-1.3); Eosinophils % 0.2 % (0-4.4); Hematocrit 37.5 % (36.0-45.0); Hemoglobin 13.1 g/dL (12.0-15.0); Lymphocytes % 22.2 % (15.3-44.8); MCH 29.3 pg (27.0-35.0); MCHC 34.9 g/dL (32.0-36.0); MCV 83.9 fL (80-100); MPV 9.5 fL (7.6-11.3); Monocytes % 5.5 % (3.3-12.3); Neutrophils % 71.2 % (41.7-73.7); Platelets 313 thou/uL (152-406); RBC Red Blood Cell Count 4.47 M/uL (3.86-4.86); Red Cell Distribution Width 15.4 % (12.1-15.2)
[2024-09-15 22:24] LABS: Influenza A Ag Negative; Influenza B Ag Negative; SARS-CoV-2 Antigen Rapid Res Negative (Negative)
[2024-09-15 22:31] LABS: Albumin 4.7 g/dL (3.4-5.0); Albumin/Globulin Ratio 1.2 (1.1-1.8); Anion Gap 11.5 mEq/L (5.0-15.0); Bilirubin Total 2.1 mg/dL (0.2-1.0); Globulin 3.8 g/dL (2.3-3.5); Potassium 3.5 mEq/L (3.5-5.1); Protein, Total 8.5 g/dL (6.4-8.2)
--- NOTE | 2024-09-15 22:56 | EDPHYS ---
Physician Documentation [facility] Name: Rafaela Cabezas Age: 24 yrs Sex: Female : 2000 Arrival Date: 09/15/2024 Time: 19:50 Bed 5 Private MD: ED Physician Junior Calhoun HPI: 09/15 20:08 This 24 yrs old Female presents to ER via Unassigned with complaints of sp4 Vomiting. 09/16 05:46 24-year-old female presents with complaint of acute vomiting. Denied diarrhea.. sp4 CARE TRANSITION MGR: 09/15 20:29 LMP 08/25/2024, unknown me1 Historical: - Allergies: 20:29 No Known Allergies; me1 - Home Meds: 20:29 None [Active]; me1 - PMHx: 20:29 myelofibrosis; Anemia; preeclampsia during ; me1 - PSHx: 20:29 Tonsillectomy; me1 - Immunization history:: Adult Immunizations up to date. - Infectious Disease History:: Denies. - Social history:: Smoking status: Patient denies any tobacco usage or history of. - Family history:: not pertinent. ROS: 09/16 05:46 Constitutional: Positive for acute vomiting and nausea sp4 All other systems are negative, Exam: 05:46 Constitutional: This is a well developed, well nourished patient who is awake, alert, sp4 and in no acute distress. Head/Face: Normocephalic, atraumatic. Eyes: Pupils equal round and reactive to light, extra-ocular motions intact. Lids and lashes normal. Conjunctiva and sclera are not injected. Cornea within normal limits. Periorbital areas with no swelling, redness, or edema. ENT: Nares patent. No nasal discharge, no septal abnormalities noted. Tympanic membranes are normal and external auditory canals are clear. Oropharynx with no redness, swelling, or masses, exudates, or evidence of obstruction, uvula midline. Mucous membranes moist. Neck: Trachea midline, no thyromegaly or masses palpated, and no cervical lymphadenopathy. Supple, full range of motion without nuchal rigidity, or vertebral point tenderness. Chest/axilla: Normal chest wall appearance and motion. Nontender with no deformity. No lesions are appreciated. Cardiovascular: Regular rate and rhythm with a normal S1 and S2. No gallops, murmurs, or rubs. Normal PMI, no JVD. No pulse deficits. Respiratory: Lungs have equal breath sounds bilaterally, clear to auscultation and percussion. No rales, rhonchi or wheezes noted. No increased work of breathing, no retractions or nasal flaring. Abdomen/GI: Soft, with normal bowel sounds. No distension or tympany. No guarding or rebound. No evidence of tenderness throughout. Back: No spinal tenderness. No costovertebral tenderness. Skin: Warm, dry with normal turgor. Normal color with no rashes, no lesions, and no evidence of cellulitis. MS/ Extremity: Pulses equal, no cyanosis. Neurovascular intact. Full, normal range of motion. Neuro: Awake and alert, GCS 15, oriented to person, place, time, and situation. Cranial nerves II-XII grossly intact. Motor strength 5/5 in all extremities. Sensory grossly intact. Psych: Awake, alert, with orientation to person, place and time. Behavior, mood, and affect are within normal limits Vital Signs: 09/15 20:26 BP 139 / 93; Pulse 72; Resp 18; Temp 98.2; Pulse Ox 100% ; Weight 68.04 kg; Height 5 me1 ft. 8 in. ; Pain 7/10; 22:56 BP 105 / 67; Pulse 51; Resp 18; Pulse Ox 100% ; vc1 20:26 Body Mass Index 22.81 (68.04 kg, 172.72 cm) me1 20:26 Pain Scale: Adult me1 Cristopher Coma Score: 09/16 05:46 Eye Response: spontaneous(4). Motor Response: obeys commands(6). Verbal Response: sp4 oriented(5). Total: 15. MDM: 09/15 20:08 Medical Screening Exam initiated sp4 09/16 05:46 Differential diagnosis: Nonspecific abd pain, gastritis, viral gastroenteritis, sp4 gastroenteritis. Data reviewed: vital signs, nurses notes, lab test result(s). Consideration of Admission/Observation Escalation of care including admission/observation considered. ED course: Patient has markedly improved after medications. Stable for discharge home.. 09/15 20:25 Order name: CBC with Diff; Complete Time: 22:52 sp4 09/15 20:25 Order name: CMP; Complete Time: 22:35 sp4 09/15 20:25 Order name: Lipase; Complete Time: 22:35 sp4 09/15 20:26 Order name: Test, Serum; Complete Time: 22:35 sp4 09/15 20:26 Order name: Urinalysis W/Microscopic; Complete Time: 22:21 sp4 09/15 20:26 Order name: COVID-19 Ag + Flu A+B Ag; Complete Time: 22:35 sp4 09/15 20:25 Order name: IV Saline Lock; Complete Time: 21:32 sp4 09/15 20:25 Order name: Labs collected and sent; Complete Time: 21:32 sp4 Administered Medications: 09/15 21:30 Drug: metoCLOPramide IVP 10 mg IVP once; over 1 to 2 minutes Route: IVP; Site: right vc1 antecubital; 22:57 Follow up: Response: No adverse reaction; Marked relief of symptoms vc1 21:30 Drug: Dicyclomine IM 20 mg IM once Route: IM; Site: left gluteus; vc1 22:57 Follow up: Response: No adverse reaction; Marked relief of symptoms vc1 21:31 Drug: Famotidine IVP 20 mg IVP once; dilute with 10 mL 0.9% NaCl; give over 2 minutes vc1 Route: IVP; Site: right antecubital; 22:57 Follow up: Response: No adverse reaction; Marked relief of symptoms vc1 21:31 Drug: TORadol - Ketorolac IVP 15 mg IVP once Route: IVP; Site: right antecubital; vc1 22:58 Follow up: Response: No adverse reaction; Marked relief of symptoms; Pain is decreased vc1 21:31 Drug: Ondansetron IVP 8 mg IVP once; over 2 minutes Route: IVP; Site: right antecubital;vc1 22:58 Follow up: Response: No adverse reaction; Marked relief of symptoms vc1 21:31 Drug: NS 0.9% IV 1000 ml IV at 1 bolus Per protocol; to be given as a bolus over 60 vc1 minutes Route: IV; Rate: 1 bolus; Site: right antecubital; 22:58 Follow up: IV Status: Completed infusion; IV Intake: 1000ml vc1 Disposition Summary: 09/15/24 22:55 Discharge Ordered Notes: Location: Home sp4 Problem: new sp4 Symptoms: have improved sp4 Condition: Stable sp4 Diagnosis - Acute viral gastroenteritis, acute nausea and vomiting sp4 Followup: sp4 - With: Private Physician - When: 10 - 14 days - Reason: Recheck today's complaints Discharge Instructions: - Discharge Summary Sheet sp4 - Viral Gastroenteritis, Adult, [id number] sp4 - Clear Liquid Diet, Adult, [id number]-we-Mivz sp4 Forms: - Work release form sp4 - Patient Portal Instructions sp4 Prescriptions: - Lomotil 2.5-0.025 mg Oral tablet - take 1 tablet ORAL route every 6 hours As needed PRN diarrhea; 30 tablet; sp4 Refills: 0, Product Selection Permitted - promethazine 25 mg Oral tablet - take 1 tablet ORAL route every 6 hours As needed PRN severe nausea; 30 tablet; sp4 Refills: 0, Product Selection Permitted - dicyclomine 20 mg Oral tablet - take 1 tablet ORAL route 4 times per day PRN abdominal cramps; 30 tablet; sp4 Refills: 0, Product Selection Permitted - ondansetron 8 mg Oral Tablet,disintegrating - take 1 tablet ORAL route every 8 hours PRN nausea; 30 tablet; Refills: 0, sp4 Product Selection Permitted Signatures: 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
--- NOTE | 2024-09-15 22:56 | ER ---
Nurse's Notes [facility] Name: Rafaela Cabezas Age: 24 yrs Sex: Female : 2000 Arrival Date: 09/15/2024 Time: 19:50 Bed 5 Private MD: Diagnosis: Acute viral gastroenteritis, acute nausea and vomiting Presentation: 09/15 20:26 Chief complaint: Patient states: n/v since 3 pm. Some blood tinged emesis the last me1 couple of times. Abdominal pain /10. Patient reports there is a chance she is . Coronavirus screen: Vaccine status: Patient reports being unvaccinated. Ebola Screen: No symptoms or risks identified at this time. Initial Sepsis Screen: Does the patient meet any 2 criteria? No. Patient's initial sepsis screen is negative. Does the patient have a suspected source of infection? No. Patient's initial sepsis screen is negative. Risk Assessment: Do you want to hurt yourself or someone else? Patient reports no desire to harm self or others. Onset of symptoms was September 15, 2024 at 15:00. 20:26 Method Of Arrival: Ambulatory id1 20:26 Acuity: CHRISTINA 3 me1 Triage Assessment: 20:30 General: Appears in no apparent distress. uncomfortable, slender, Behavior is calm, vc1 cooperative, appropriate for age. Pain: Complains of pain in right lower quadrant and left lower quadrant Pain does not radiate. Pain currently is 6 out of 10 on a pain scale. Quality of pain is described as pressure. EENT: No deficits noted. No signs and/or symptoms were reported regarding the EENT system. Neuro: Level of Consciousness is awake, alert, obeys commands, Oriented to person, place, time, situation, Appropriate for age. Cardiovascular: Capillary refill < 3 seconds Patient's skin is warm and dry. Respiratory: Airway is patent Respiratory effort is even, unlabored, Respiratory pattern is regular, symmetrical, Breath sounds are clear bilaterally. GI: Reports lower abdominal pain, nausea, vomiting. : No deficits noted. No signs and/or symptoms were reported regarding the genitourinary system. Derm: Skin is intact, is healthy with good turgor, Skin is dry, Skin is normal, Skin temperature is warm. Musculoskeletal: Circulation, motion, and sensation intact. Range of motion: intact in all extremities. 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 - Infectious Disease History:: Denies. - Social history:: Smoking status: Patient denies any tobacco usage or history of. - Family history:: not pertinent. Screenin:25 [facility] ED Fall Risk Assessment (Adult) History of falling in the last 3 months, vc1 including since admission No falls in past 3 months (0 pts) Confusion or Disorientation No (0 pts) Intoxicated or Sedated No (0 pts) Impaired Gait No (0 pts) Mobility Assist Device Used No (0 pt) Altered Elimination No (0 pt) Score/Fall Risk Level 0 - 2 = Low Risk Oriented to surroundings, Maintained a safe environment, Educated pt \T\ family on fall prevention, incl call for assistance when getting out of bed. Abuse screen: Denies threats or abuse. Nutritional screening: No deficits noted. Tuberculosis screening: No symptoms or risk factors identified. Assessment: 20:30 General: see triage assessment. vc1 20:30 GI: Abdomen is flat, non-distended, Abd is soft Abdomen is tender to palpation Reports vc1 lower abdominal pain, nausea, vomiting. 23:02 Reassessment: Patient appears in no apparent distress at this time. Patient and/or vc1 family updated on plan of care and expected duration. Pain level reassessed. Patient is alert, oriented x 3, equal unlabored respirations, skin warm/dry/pink. Patient states feeling better. Patient states symptoms have improved. Vital Signs: 20:26 BP 139 / 93; Pulse 72; Resp 18; Temp 98.2; Pulse Ox 100% ; Weight 68.04 kg; Height 5 id1 ft. 8 in. ; Pain 7/10; 22:56 BP 105 / 67; Pulse 51; Resp 18; Pulse Ox 100% ; vc1 20:26 Body Mass Index 22.81 (68.04 kg, 172.72 cm) id1 20:26 Pain Scale: Adult [facility] Cristopher Coma Score: 09/16 05:46 Eye Response: spontaneous(4). Motor Response: obeys commands(6). Verbal Response: sp4 oriented(5). Total: 15. ED Course: 09/15 19:53 Patient arrived in ED. mr 20:08 Junior Calhoun MD is Attending Physician. sp4 20:29 Triage completed. me1 20:29 Arm band placed on Patient placed in an exam room. me1 20:29 Patient has correct armband on for positive identification. Bed in low position. Call vc1 light in reach. Provided Education on: call light. Pulse ox on. NIBP on. 21:09 Jaqui Daley RN is Primary Nurse. vc1 21:32 CBC with Diff Sent. vc1 21:32 CMP Sent. vc1 21:32 Lipase Sent. vc1 21:32 Test, Serum Sent. vc1 21:32 Urinalysis W/Microscopic Sent. vc1 21:32 COVID-19 Ag + Flu A+B Ag Sent. vc1 21:32 Initial lab(s) drawn, by ED staff, sent to lab. Urine collected: clean catch specimen, vc1 geno colored. Inserted saline lock: 20 gauge in right antecubital area, using aseptic technique. Blood collected. Flushed with 10 mL NS. 23:02 No provider procedures requiring assistance completed. IV discontinued, intact, vc1 bleeding controlled, No redness/swelling at site. Pressure dressing applied. Administered Medications: 21:30 Drug: metoCLOPramide IVP 10 mg IVP once; over 1 to 2 minutes Route: IVP; Site: right vc1 antecubital; 22:57 Follow up: Response: No adverse reaction; Marked relief of symptoms vc1 21:30 Drug: Dicyclomine IM 20 mg IM once Route: IM; Site: left gluteus; vc1 22:57 Follow up: Response: No adverse reaction; Marked relief of symptoms vc1 21:31 Drug: Famotidine IVP 20 mg IVP once; dilute with 10 mL 0.9% NaCl; give over 2 minutes vc1 Route: IVP; Site: right antecubital; 22:57 Follow up: Response: No adverse reaction; Marked relief of symptoms vc1 21:31 Drug: TORadol - Ketorolac IVP 15 mg IVP once Route: IVP; Site: right antecubital; vc1 22:58 Follow up: Response: No adverse reaction; Marked relief of symptoms; Pain is decreased vc1 21:31 Drug: Ondansetron IVP 8 mg IVP once; over 2 minutes Route: IVP; Site: right antecubital;vc1 22:58 Follow up: Response: No adverse reaction; Marked relief of symptoms vc1 21:31 Drug: NS 0.9% IV 1000 ml IV at 1 bolus Per protocol; to be given as a bolus over 60 vc1 minutes Route: IV; Rate: 1 bolus; Site: right antecubital; 22:58 Follow up: IV Status: Completed infusion; IV Intake: 1000ml vc1 Medication: 23:02 VIS not applicable for this client. vc1 Intake: 22:58 IV: 1000ml; Total: 1000ml. vc1 Outcome: 22:55 Discharge ordered by . sp4 23:03 Discharged to home ambulatory, vc1 23:03 Condition: stable 23:03 Discharge instructions given to patient, Instructed on discharge instructions, follow up and referral plans. medication usage, Demonstrated understanding of instructions, follow-up care, medications, Prescriptions given X 4, 23:07 Patient left the ED. vc1 Signatures: Rafaela Shelton, Reg Reg mr Jaqui Daley RN RN vc1 Junior Calhoun MD MD sp4 Maria Guadalupe Best RN RN me1
[2024-09-15 23:45] VITALS: TEMP 98.2; O2SAT 100
[2024-09-15 23:50] VITALS: BP 105/67
== END 2024-09-15 23:07 | disposition home or self-care (01) ==
LOC: ER 19:50
DX: A08.4 Viral intestinal infection, unspecified (principal); Z11.52 Encounter for screening for COVID-19
CPT/HCPCS: 96361; 85025; 81001; 36415; 84703; 83690; 80053; 96375; 96372; 96374; 99284; 87428; J2765; J0500; J2405; J7030

== ENCOUNTER 2024-10-01 06:44 | Emergency (ER) | payer OTHER ==
--- OUTSIDE RECORDS SUMMARY | 2024-10-01 06:47 | XMS REPORT | Continuity of Care Document ---
Author Name Unknown Address [address] [facility] [address] [place] [address] [facility] Address [address] [facility] [address] [facility] [address] [place] [address] Care Team Providers Care Metal Temperer Name Role Phone Adali Hi Primary Care Physician [phone] Rosa Elena Mendiola Attending Clinician Unavailab Flori Celeste Attending Clinician Unavailable Flori Akins Attending Clinician [phone] BARBARA BAILEY Attending Clinician Unavailable Barbara Bailey PA-C Attending Clinician [phone] Unknown, Attending Attending Clinician Unavailab le CONCEPCIONIR_D Attending Clinician Unavailable Doctor Unassigned, [place] Attending Clinician Natalie Lomax Attending Clinician Unavailab [...] the original. Nuvaring started in July 2018. [facility] Major depressive disorder Major depressive disorder Disease Active 09-29 00:00: 00 Overview: Formattin g of this note might be different from the original. 09/29/18 - referral to anna fay [facility] Allergies, Adverse Reactions, Alerts Allergy Name Allergy Type Status Severity Reaction(s) Onset Date Inactive Date Treating Clinician Comments Source No Known Drug Allergie s DA Active U 07-26 00:00: 00 [facility] cinnamon DA Active U Swelling of Lip/Tongue/T hroat 07-26 00:00: 00 [facility] almond DA Active U Swelling of Lip/Tongue/T hroat 07-26 00:00: 00 [facility] NO KNOWN ALLERGIE S Drug Class Active [facility] Social History Social Habit Start Date Stop Date Quantity Comments Source History of tobacco use Passive smoker [facility] History of Social function 2018-12-18 00:00:00 2018-12-18 00:00:00 [facility] Alcohol intake 2018-10-17 00:00:00 2018-10-17 00:00:00 Current non-drinker of alcohol (finding) [facility] Alcoholic beverage intake 2017-03-14 00:00:00 2017-03-14 00:00:00 0 /d [facility] Tobacco use and exposure 2015-05-11 00:00:00 2015-05-11 00:00:00 Smokeless tobacco non-user [facility] Tobacco Comment 2015-05-11 00:00:00 2015-05-11 00:00:00 Step-father smokes outside [facility] Sex assigned at 2000 00:00:00 2000 00:00:00 [facility] Smoking Status Start Date Stop Date Source Never smoked tobacco [facility] Medications Ordered Medication Name Filled Medication Name Start Date Stop Date Current Medication? Ordering Clinician Indication Dosage Frequency Signature (SIG) Comments Components Source amoxicillin -clavulanat e (AUGMENTIN) 875-125 mg per tablet 11-06 00:00: 00 Yes [id number] 1{tbl} Take 1 tablet by mouth in the morning and 1 tablet in the evening. [facility] NUVARING 0.12-0.015 mg/24 hr vaginal insert 08-26 00:00: 00 Yes INSERT 1 RING VAINALLY AND LEAVE IN PLACE FOR 3 WEEKS THEN REMOVE FOR [address] [facility] naproxen (EC-NAPROSY N) 375 mg EC tablet 02-02 00:00: 00 Yes 375mg Take 1 tablet by mouth 2 (two) times daily with meals. [facility] Immunizations Ordered Immunization Name Filled Immunization Name Date Status Comments Source TDAP 2023-11-07 12:43:00 Completed [facility] TDAP 2023-11-07 11:18:06 Completed [facility] TDAP 2023-11-07 10:40:00 Completed [facility] Vital Signs Vital Name Observation Time Observation Value Comments S timbenjy Systolic blood pressure 2023-11-07 18:21:00 125 mm[Hg] [facility] Diastolic blood pressure 2023-11-07 18:21:00 83 mm[Hg] [facility] Heart rate 2023-11-07 18:21:00 62 /min [facility] Body temperature 2023-11-07 18:21:00 36.89 Minda [facility] Respiratory rate 2023-11-07 18:21:00 15 /min [facility] Oxygen saturation in Arterial blood by Pulse oximetry 2023-11-07 18:21:00 98 /min [facility] Body height 2023-11-07 17:42:00 175.3 cm [facility] Body weight 2023-11-07 17:42:00 90.719 kg [facility] BMI 2023-11-07 17:42:00 29.53 kg/m2 [facility] Oxygen saturation in Arterial blood by Pulse oximetry 2023-11-07 16:09:00 98 /min [facility] Systolic blood pressure 2023-11-07 16:09:00 136 mm[Hg] [facility] Diastolic blood pressure 2023-11-07 16:09:00 85 mm[Hg] [facility] Heart rate 2023-11-07 16:09:00 65 /min [facility] Body temperature 2023-11-07 16:09:00 37 Minda [facility] Respiratory rate 2023-11-07 16:09:00 18 /min [facility] Body height 2023-11-07 16:09:00 175.3 cm [facility] Body weight 2023-11-07 16:09:00 90.719 kg [facility] BMI 2023-11-07 16:09:00 29.53 kg/m2 [facility] KHADIJAH CHARGE Pulse Oximetry 2020-08-01 18:32:38 [...] Temperature 2020-08-01 18:32:38 36.9\S\98.4 Weight 2020-08-01 18:32:38 20150.321\S\3520 Weight Measurement Method 2020-08-01 18:32:38 Standing Scale [...] Temperature 2020-07-30 17:59:41 36.9\S\98.4 Weight 2020-07-30 17:59:41 56153.321\S\3520 Weight Measurement Method 2020-07-30 17:59:41 Standing Scale [...] Temperature 2020-07-30 17:59:40 36.9\S\98.4 Weight 2020-07-30 17:59:40 36026.321\S\3520 Weight Measurement Method 2020-07-30 17:59:40 Standing Scale [...] Temperature 2020-07-30 16:58:54 36.9\S\98.4 Weight 2020-07-30 16:58:54 37422.321\S\3520 Weight Measurement Method 2020-07-30 16:58:54 Standing Scale [...] Temperature 2020-07-29 13:59:12 36.6\S\97.9 Weight 2020-07-29 13:59:12 90910.321\S\3520 Weight Measurement Method 2020-07-29 13:59:12 Standing Scale [...] Temperature 2020-07-29 13:14:41 36.6\S\97.9 Weight 2020-07-29 13:14:41 64804.321\S\3520 Weight Measurement Method 2020-07-29 13:14:41 Standing Scale [...] Temperature 2020-07-28 22:24:53 36.7\S\98.1 Weight 2020-07-28 22:24:53 31125.321\S\3520 Weight Measurement Method 2020-07-28 22:24:53 Standing Scale [...] Temperature 2020-07-28 20:21:41 98.5\S\209.3 Weight 2020-07-28 20:21:41 43137.321\S\3520 Weight Measurement Method 2020-07-28 20:21:41 Standing Scale [...] Temperature 2020-07-28 17:18:01 37.3\S\99.1 Weight 2020-07-28 17:18:01 70364.321\S\3520 Weight Measurement Method 2020-07-28 17:18:01 Standing Scale [...] Temperature 2020-07-28 16:02:09 37.3\S\99.1 Weight 2020-07-28 16:02:09 12546.321\S\3520 Weight Measurement Method 2020-07-28 16:02:09 Standing Scale [...] Temperature 2020-07-28 16:01:38 37.3\S\99.1 Weight 2020-07-28 16:01:38 90656.321\S\3520 Weight Measurement Method 2020-07-28 16:01:38 Standing Scale [...] Temperature 2020-07-28 16:00:33 37.3\S\99.1 Weight 2020-07-28 16:00:33 10655.321\S\3520 Weight Measurement Method 2020-07-28 16:00:33 Standing Scale [...] Temperature 2020-07-28 11:18:03 36.7\S\98.0 Weight 2020-07-28 11:18:03 49812.321\S\3520 Weight Measurement Method 2020-07-28 11:18:03 Standing Scale [...] Temperature 2020-07-28 11:17:02 36.7\S\98.0 Weight 2020-07-28 11:17:02 73001.321\S\3520 Weight Measurement Method 2020-07-28 11:17:02 Standing Scale [...] 2020-07-27 15:48:11 Normal /min Weight 2020-07-27 15:48:11 67752.321\S\3520 Weight Measurement Method 2020-07-27 15:48:11 Standing Scale [...] 2020-07-27 06:19:24 Normal /min Weight 2020-07-27 06:19:24 13118.321\S\3520 Weight Measurement Method 2020-07-27 06:19:24 Standing Scale Respiratory 2020-07-27 02:59:13 No respirato ry distress /min Body Mass Index 2020-07-27 02:59:13 34.5 Height 2020-07-27 02:59:13 170.18\S\67 Pulse Strength 2020-07-27 02:59:13 Normal /min Pulse Assessment Method 2020-07-27 02:59:13 Auscultation /min Respiratory Depth 2020-07-27 02:59:13 Normal /min Respiratory Effort 2020-07-27 02:59:13 Spontaneous /min Respiratory Pattern 2020-07-27 02:59:13 Normal /min Weight 2020-07-27 02:59:13 06804.321\S\3520 Weight Measurement Method 2020-07-27 02:59:13 Standing Scale [...] 2020-07-27 00:18:07 Normal /min Weight 2020-07-27 00:18:07 55628.321\S\3520 Weight Measurement Method 2020-07-27 00:18:07 Standing Scale Respiratory 2020-07-26 23:58:27 No respirato ry distress /min Body Mass Index 2020-07-26 23:58:27 34.5 Height 2020-07-26 23:58:27 170.18\S\67 Pulse Strength 2020-07-26 23:58:27 Normal /min Pulse Assessment Method 2020-07-26 23:58:27 Auscultation /min Respiratory Depth 2020-07-26 23:58:27 Normal /min Respiratory Effort 2020-07-26 23:58:27 Spontaneous /min Respiratory Pattern 2020-07-26 23:58:27 Normal /min Weight 2020-07-26 23:58:27 72466.321\S\3520 Weight Measurement Method 2020-07-26 23:58:27 Standing Scale [...] 2020-07-26 23:57:57 Normal /min Weight 2020-07-26 23:57:57 22948.321\S\3520 Weight Measurement Method 2020-07-26 23:57:57 Standing Scale [...] 2020-07-26 23:51:19 Normal /min Weight 2020-07-26 23:51:19 77767.321\S\3520 Weight Measurement Method 2020-07-26 23:51:19 Standing Scale WEIGHT 2020-07-26 22:05:00 99.643986 kg HEIGHT 2020-07-26 22:05:00 170.18 cm Respiratory 2020-07-26 21:20:16 No respirato ry distress /min Body Mass Index 2020-07-26 21:20:16 34.4 Height 2020-07-26 21:20:16 170.18\S\67 Respiratory Depth 2020-07-26 21:20:16 Normal /min Respiratory Effort 2020-07-26 21:20:16 Spontaneous /min Respiratory Pattern 2020-07-26 21:20:16 Normal /min Weight 2020-07-26 21:20:16 10674.321\S\3520 Respiratory 2020-07-26 21:00:17 No respirato ry distress /min Body Mass Index 2020-07-26 21:00:17 34.4 Height 2020-07-26 21:00:17 170.18\S\67 Respiratory Depth 2020-07-26 21:00:17 Normal /min Respiratory Effort 2020-07-26 21:00:17 Spontaneous /min Respiratory Pattern 2020-07-26 21:00:17 Normal /min Weight 2020-07-26 21:00:17 03110.321\S\3520 Body Mass Index 2020-07-26 18:10:15 34.4 Height 2020-07-26 18:10:15 170.18\S\67 Weight 2020-07-26 18:10:15 70441.321\S\3520 Body Mass Index 2020-07-26 18:00:25 34.4 Height 2020-07-26 18:00:25 170.18\S\67 Weight 2020-07-26 18:00:25 95378.321\S\3520 Body Mass Index 2020-07-26 18:00:24 34.4 Height 2020-07-26 18:00:24 170.18\S\67 Weight 2020-07-26 18:00:24 27160.321\S\3520 WEIGHT 2020-07-26 18:00:00 99.708418 kg HEIGHT 2020-07-26 18:00:00 170.18 cm Procedures Procedure Date / Time Performed Performing Clinicia n Source XR HAND 3+ VW LEFT 2023-11-07 16:24:24 Barbara Bailey [facility] TDAP VACCINE, >11 YRS, IM 2023-11-07 16:18:04 Barbara Bailey [facility] CLINIC RECORD / SMR 2020-12-19 05:01:00 Doctor U daltonsigned, [place] [facility] CONSENT/REFUSAL FOR DIAGNOSIS AND TREATMENT 2017-04-24 21:26:09 Doctor Unassigned, [place] [facility] CONSENT/REFUSAL FOR DIAGNOSIS AND TREATMENT 2017-04-24 21:25:54 Doctor Unassigned, [place] [facility] ASSIGNMENT OF BENEFITS 2017-04-24 21:25:25 Docto r Unassigned, [place] [facility] Encounters Start Date/Time End Date/Time Encounter Type Admission Type Attending [facility] Care Facility Care Department Encounter ID Source 2017-04-24 00:00:00 2024-07-25 03:33:24 Orders Only Rosa Elena [facility]ola [facility] [id number] [facility] 2023-11-07 12:43:00 2023-11-07 14:07:00 Emergency X Flori BRITTON [facility] ERT [id number] [facility] 2023-11-07 12:43:00 2023-11-07 14:07:00 Emergency Flori Britton [facility] 1..840.114 350.1.13.10 4.2.7.2.[id number] [facility] 2023-11-07 11:18:06 2023-11-07 12:42:00 Outpatient R BARBARA BAILEY [facility] [id number] [facility] 2023-11-07 11:18:06 2023-11-07 12:42:00 Hospital Encounter Barbara Bailey [facility] DASHA?[facility] [id number] [id number] [id number] [facility] 2023-11-07 10:40:00 2023-11-07 11:55:02 Urgent Care Barbara Bailey Unknown, Attending [facility] [id number] [id number] [id number] [facility] 2021-11-14 12:29:00 2021-11-14 12:29:00 Outpatient GRAIR_D [facility] [id number] [facility] 2020-12-19 00:00:00 2020-12-19 00:00:00 Orders Only Doctor Unassigned, [place] [facility] [id number] [id number] [id number] [facility] 2020-07-26 17:56:00 2020-07-26 17:56:[address] [facility] [id number] [facility] 2020-07-26 17:56:00 2020-07-26 17:56:[address] [facility] [id number] [facility] 2019-08-24 15:00:00 2019-08-24 15:00:00 Outpatient BARBARA SALEEM [facility] [id number] [facility] 2019-08-24 15:00:00 2019-08-24 15:00:00 Outpatient BARBARA SALEEM [facility] [id number] [facility] Results Test Description Test Time Test Comments Results Resul t Comments Source XR HAND 3+ VW LEFT 2023-11-07 17:07:36 EXAM: XR HAND 3+ VW LEFT HISTORY: 23 years-old Female with left hand cat bite COMPARISON: None. FINDINGS: Radiographs of the left hand demonstrate no acute fractures ordislocations. Joint spaces are preserved. Alignment is within normallimits. The soft tissues are unremarkable. [facility] Rapid Plasma [id number] 17:15:00* Test Item Value Reference Range Interpretation Comme nts Rapid Plasma Reagin (test co de = RPR) Non-Reactive Non-React Patient Consent on File YHepatitis B Surface [id number] 17:15:00* Test Item Value Reference Range Interpretation Comme nts Hepatitis B Surface Antigen (test code = HBSAG) Non-Reactive NonReactive NormalUnknown fl ag:, (Final Result Ru) Patient Consent on File YHIV AG/AB [id number] 17:15:00* Test Item Value Reference Range Interpretation Comme nts HIV 1/2 AB (test code = HIVAB) Non Reactive Non React HIV p24 AG (test code = HIVAG) Non Reactive Non React Patient Consent on File YLactate [id number] 19:00:00* Test Item Value Reference Range Interpretation Comme nts Lactate Dehydrogenase (test code = LDH) 198 U/L 120-246 N Protein/Creatinine Ratio,[id number] 19:00:00* Test Item Value Reference Range Interpretation Comme nts Total Protein,Urine Random (test code = TPU) mmol/L 1.0-14.0 result to foll ow Creatinine,Urine Random (test code = CREU) 38.6 mg/dL 10.0-300.0 N Protein/Creatinine Ratio,Urine (test code = PROUCRE) Ratio result to follow UA, Urinalysis [id number] 19:00:00* Test Item Value Reference Range Interpretation Comme nts Color,Urine (test code = UCOL) Yellow Yellow Clarity,Urine (test code = UCLAR) Clear Clear PH,Urine (test code = UPH.XX) 6.5 5.5-8.5 Specific Hartman,Urine (test code = USG) 1.025 1.005-1.030 N [...] Negative cells/uL Negative Complete Blood Count Auto [id number] 19:00:00* Test Item Value Reference Range Interpretation Comme nts White Blood Count (test code = WBCT) 15.0 x10 3/uL 4.4-10.5 H Red Blood Count (test code = RBC) 4.15 x10 6/uL 3.75-5.20 N Hemoglobin (test code = HGBT) 12.2 g/dL 12.2-14.8 N Hematocrit (test code = HCTT) 36.3 % 36.5-44.4 L Mean Corpuscular Volume (maugi t code = MCV) 87.50 fL 80.00-100.00 [...] code = NRBCP) 0 % Comprehensive Metabolic [id number] 19:00:00* Test Item Value Reference Range Interpretation [...] = ALP) 146 U/L 46-116 H Uric [id number] 19:00:00* Test Item Value Reference Range Interpretation [...] distress. No ataxia noted. Delisa Breaux RN [facility] 2023-11-07 12:41:35 Patient to ED for cat bite to left arm. 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 Zaid Rodney RN [facility]
[2024-10-01] MEDS ORDERED: NA CHLORIDE 0.9% 1,000 ML ONE (07:26)
[2024-10-01] MEDS ORDERED: ONDANSETRON 4 MG/2 ML VIAL ONE (07:26)
[2024-10-01 07:39] LABS: Absolute Eosinophils 0.1 K/uL (0-0.5); Absolute Lymphocytes (CBC) 1.6 K/uL (0.7-4.9); Absolute Monocytes 0.3 K/uL (0.1-1.3); Absolute Neutrophil 4.4 K/uL (1.8-8.0); Basophils % 0.5 % (0-1.3); Eosinophils % 0.8 % (0-4.4); Hematocrit 38.7 % (36.0-45.0); Hemoglobin 13.7 g/dL (12.0-15.0); Lymphocytes % 25.1 % (15.3-44.8); MCH 30.1 pg (27.0-35.0); MCHC 35.5 g/dL (32.0-36.0); MCV 84.9 fL (80-100); MPV 8.8 fL (7.6-11.3); Monocytes % 5.4 % (3.3-12.3); Neutrophils % 68.2 % (41.7-73.7); Platelets 259 thou/uL (152-406); RBC Red Blood Cell Count 4.55 M/uL (3.86-4.86); Red Cell Distribution Width 15.2 % (12.1-15.2)
[2024-10-01 07:54] LABS: Specific Gravity 1.016 (1.005-1.030); Sqamous Epithelial <5 /HPF (None Seen); Urine Bacteria None Seen /HPF (<20); Urine Bilirubin NEGATIVE (Negative); Urine Blood Negative (Negative); Urine Clarity Clear (Clear); Urine Color Light-Yellow (Yellow); Urine Culture Reflex Order NOT NEEDED; Urine Glucose NEGATIVE (Negative); Urine Ketones NEGATIVE (Negative); Urine Microscopic Reflex YN ORDER UMIC; Urine Mucus Slight /HPF (None Seen); Urine Nitrite NEGATIVE (Negative); Urine Protein NEGATIVE (Negative); Urine RBC None Seen /HPF (None Seen); Urine Urobilinogen Normal (Normal); Urine WBC <5 /HPF (<5); Urine pH 7.5 (5.0-7.0)
[2024-10-01 07:58] LABS: Specific Gravity 1.016 (1.005-1.030)
[2024-10-01 08:03] LABS: Albumin/Globulin Ratio 1.1 (1.1-1.8); Anion Gap 7.1 mEq/L (5.0-15.0); Bilirubin Total 0.7 mg/dL (0.2-1.0); Globulin 3.7 g/dL (2.3-3.5); Potassium 4.1 mEq/L (3.5-5.1); Protein, Total 7.7 g/dL (6.4-8.2)
[2024-10-01] MEDS ORDERED: NA CHLORIDE 0.9% 100 ML ONE (08:07)
[2024-10-01] MEDS ORDERED: KETOROLAC 30 MG/ML INJ ONE (08:07)
[2024-10-01] MEDS ORDERED: CEFTRIAXONE 1000 MG/VIAL ONE (08:07)
--- NOTE | 2024-10-01 08:51 | RAD REPORT ---
EXAM: CT brain without contrast HISTORY: Headache COMPARISON: None TECHNIQUE: Multiple contiguous axial images were obtained and a CT of the brain without contrast.. Sagittal and coronal reconstruction performed. Automated exposure control, adjustment of the mA and/or kV according to patient size, and/or iterative reconstruction. Unless otherwise specified, incidental f indings do not require dedicated imaging follow-up FINDINGS: An intracranial bleed is not seen Ventricles are normal caliber No extra-axial fluid collection noted No significant hypodensity within the brain No fluid within the visualized sinuses or mastoids noted. IMPRESSION: No acute intracranial abnormality noted. If the patient continues to have symptoms to suggest an acute intracranial abnormality then MRI of th e brain would be recommended.
--- NOTE | 2024-10-01 09:04 | ER ---
Nurse's Notes [facility] Name: Rafaela Cabezas Age: 24 yrs Sex: Female : 2000 Arrival Date: 10/01/2024 Time: 06:44 Bed 8 Private MD: Diagnosis: Headache;Nausea with vomiting, unspecified;UTI/ Urinary tract infection, site not specified Presentation: 10/01 07:16 Chief complaint: Patient states: N/V and headache that began at 0200 this morning. ss Coronavirus screen: Client denies travel out of the [place] in the last 14 days. Ebola Screen: Patient denies exposure to infectious person. Patient denies travel to an Ebola-affected area in the 21 days before illness onset. Initial Sepsis Screen: Does the patient meet any 2 criteria? No. Patient's initial sepsis screen is negative. Does the patient have a suspected source of infection? No. Patient's initial sepsis screen is negative. Risk Assessment: Do you want to hurt yourself or someone else? Patient reports no desire to harm self or others. Onset of symptoms was October 01, 2024. 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 - Infectious Disease History:: Denies. - Social history:: Smoking status: Patient denies any tobacco usage or history of. Screenin:00 [facility] ED Fall Risk Assessment (Adult) History of falling in the last 3 months, db including since admission No falls in past 3 months (0 pts) Confusion or Disorientation No (0 pts) Intoxicated or Sedated No (0 pts) Impaired Gait No (0 pts) Mobility Assist Device Used No (0 pt) Altered Elimination No (0 pt) Score/Fall Risk Level 0 - 2 = Low Risk Oriented to surroundings, Maintained a safe environment. Abuse screen: Denies threats or abuse. Denies injuries from another. Nutritional screening: No deficits noted. Tuberculosis screening: No symptoms or risk factors identified. Assessment: 08:00 Reassessment: Patient appears in no apparent distress at this time. Patient and/or db family updated on plan of care and expected duration. Pain level reassessed. Patient is alert, oriented x 3, equal unlabored respirations, skin warm/dry/pink. General: Appears in no apparent distress. comfortable, Behavior is calm, cooperative. Neuro: Level of Consciousness is awake, alert, obeys commands, Oriented to person, place, time, situation. Respiratory: Airway is patent Respiratory effort is even, unlabored, Respiratory pattern is regular, symmetrical. GI: Abdomen is non-distended. 09:55 Reassessment: Patient appears in no apparent distress at this time. Patient and/or db family updated on plan of care and expected duration. Pain level reassessed. Patient is alert, oriented x 3, equal unlabored respirations, skin warm/dry/pink. Patient states feeling better. Patient states symptoms have improved. Vital Signs: 07:16 BP 129 / 86; Pulse 81; Resp 14; Pulse Ox 98% on R/A; Weight 77.11 kg; Height 5 ft. 8 ss in. ; Pain 7/10; 09:15 BP 125 / 81; Pulse 67; Resp 18; Pulse Ox 100% ; db 07:16 Body Mass Index 25.85 (77.11 kg, 172.72 cm) ss 07:16 Pain Scale: Adult ss Cristopher Coma Score: 08:08 Eye Response: spontaneous(4). Motor Response: obeys commands(6). Verbal Response: jennifer oriented(5). Total: 15. ED Course: 06:45 Patient arrived in ED. jj6 07:07 Oz Zhao, RN is Primary Nurse. bp 07:10 Hakan Varela MD is Attending Physician. jennifer 07:17 Triage completed. ss 07:17 Arm band placed on right wrist. ss 07:32 CMP Sent. bc6 07:32 CBC with Diff Sent. bc6 07:32 Initial lab(s) drawn, by me, sent to lab. Inserted saline lock: 20 gauge in right bc6 antecubital area, using aseptic technique. Blood collected. Flushed with 10 mL NS. 07:41 Test, Urine Sent. bc6 07:41 Urinalysis w/ reflexes Sent. bc6 07:41 Urine collected: clean catch specimen, clear. bc6 08:00 Patient has correct armband on for positive identification. Bed in low position. Call db light in reach. Side rails up X 1. Pulse ox on. NIBP on. Warm blanket given. 08:21 CT Head Brain wo Cont In Process Unspecified. EDCT 09:04 Claude Victoria MD is Referral Physician. [facility] 09:55 Provided Education on: DISCHARGE AND FOLLOWUP. db 09:55 No provider procedures requiring assistance completed. IV discontinued, intact, db bleeding controlled, No redness/swelling at site. Administered Medications: 07:42 Drug: Ondansetron IVP 4 mg IVP once; over 2 minutes Route: IVP; Site: right antecubital;db 09:56 Follow up: Response: No adverse reaction db 07:43 Drug: NS 0.9% IV 1000 ml IV at 1 bolus Per protocol; to be given as a bolus over 60 db minutes Route: IV; Rate: 1 bolus; Site: right antecubital; 09:56 Follow up: Response: No adverse reaction; IV Status: Completed infusion; IV Intake: db 1000ml 08:14 Drug: Ketorolac IVP 30 mg IVP once Route: IVP; Site: right antecubital; bp 09:57 Follow up: Response: No adverse reaction db 08:15 Drug: Rocephin IV 1 grams IV at per protocol once; Given slow IV push per pharmacy bp instructions Route: IV; Rate: per protocol; Site: right antecubital; 09:57 Follow up: Response: No adverse reaction; IV Status: Completed infusion; IV Intake: 50mldb Medication: 08:00 VIS not applicable for this client. db Intake: 09:56 IV: 1000ml; Total: 1000ml. db 09:57 IV: 50ml; Total: 1050ml. db Outcome: 09:04 Discharge ordered by . [facility] 09:55 Discharged to home ambulatory, db 09:55 Condition: stable 09:55 Discharge instructions given to patient, Instructed on discharge instructions, follow up and referral plans. 09:57 Patient left the ED. db Signatures: Dispatcher [employer] EDCT Hakan Varela MD MD cha Blanchard, Shelby, RN RN Oz Zhao RN RN bp Carla Ochoa jj6 China Powell RN RN db Joy Fleming bc6
--- NOTE | 2024-10-01 09:04 | EDPHYS ---
Physician Documentation [facility] Name: Rafaela Cabezas Age: 24 yrs Sex: Female : 2000 Arrival Date: 10/01/2024 Time: 06:44 Bed 8 Private MD: AMELIE Physician Hakan Varela HPI: 10/01 08:00 This 24 yrs old Female presents to ER via Ambulatory with complaints of jennifer Nausea/Vomiting, Headache. 08:00 The patient presents to the emergency department with nausea, vomiting, that is jennifer intermittent. Onset: The symptoms/episode began/occurred 1 day(s) ago. Possible causes: unknown. The symptoms are aggravated by nothing. The symptoms are alleviated by nothing. Associated signs and symptoms: The patient has no apparent associated signs or symptoms. Severity of symptoms: At their worst the symptoms were moderate in the emergency department the symptoms are unchanged. The patient has not experienced similar symptoms in the past. 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 - Infectious Disease History:: Denies. - Social history:: Smoking status: Patient denies any tobacco usage or history of. ROS: 08:06 Constitutional: Negative for fever, chills, and weight loss, Eyes: Negative for injury, jennifer pain, redness, and discharge, ENT: Negative for injury, pain, and discharge, Neck: Negative for injury, pain, and swelling, Cardiovascular: Negative for chest pain, palpitations, and edema, Respiratory: Negative for shortness of breath, cough, wheezing, and pleuritic chest pain, Back: Negative for injury and pain, : Negative for injury, bleeding, discharge, and swelling, MS/Extremity: Negative for injury and deformity, Skin: Negative for injury, rash, and discoloration, Psych: Negative for depression, anxiety, suicide ideation, homicidal ideation, and hallucinations, Allergy/Immunology: Negative for hives, rash, and allergies, Endocrine: Negative for neck swelling, polydipsia, polyuria, polyphagia, and marked weight changes, Hematologic/Lymphatic: Negative for swollen nodes, abnormal bleeding, and unusual bruising, 08:06 Abdomen/GI: Positive for abdominal pain, nausea and vomiting, 08:06 Neuro: Positive for headache, Exam: 08:06 Constitutional: This is a well developed, well nourished patient who is awake, alert, jennifer and in no acute distress. Head/Face: Normocephalic, atraumatic. Eyes: Pupils equal round and reactive to light, extra-ocular motions intact. Lids and lashes normal. Conjunctiva and sclera are non-icteric and not injected. Cornea within normal limits. Periorbital areas with no swelling, redness, or edema. ENT: Nares patent. No nasal discharge, no septal abnormalities noted. Tympanic membranes are normal and external auditory canals are clear. Oropharynx with no redness, swelling, or masses, exudates, or evidence of obstruction, uvula midline. Mucous membranes moist. Neck: Trachea midline, no thyromegaly or masses palpated, and no cervical lymphadenopathy. Supple, full range of motion without nuchal rigidity, or vertebral point tenderness. No Meningismus. Chest/axilla: Normal chest wall appearance and motion. Nontender with no deformity. No lesions are appreciated. Cardiovascular: Regular rate and rhythm with a normal S1 and S2. No gallops, murmurs, or rubs. Normal PMI, no JVD. No pulse deficits. Respiratory: Lungs have equal breath sounds bilaterally, clear to auscultation and percussion. No rales, rhonchi or wheezes noted. No increased work of breathing, no retractions or nasal flaring. Abdomen/GI: Soft, non-tender, with normal bowel sounds. No distension or tympany. No guarding or rebound. No evidence of tenderness throughout. Back: No spinal tenderness. No costovertebral tenderness. Full range of motion. Skin: Warm, dry with normal turgor. Normal color with no rashes, no lesions, and no evidence of cellulitis. MS/ Extremity: Pulses equal, no cyanosis. Neurovascular intact. Full, normal range of motion., bilateral aka Neuro: Awake and alert, GCS 15, oriented to person, place, time, and situation. Cranial nerves II-XII grossly intact. Motor strength 5/5 in all extremities. Sensory grossly intact. Cerebellar exam normal. Normal gait. Psych: Awake, alert, with orientation to person, place and time. Behavior, mood, and affect are within normal limits. 08:06 Neck: ROM/movement: is normal, is supple, without pain, no range of motions limitations, no meningismus, no nuchal rigidity, negative Brudzinski's sign, negative Kernig's sign, no acute changes, pain, is not appreciated, limited range of motion, is not appreciated, Meningeal signs: are not present, nuchal rigidity, is not appreciated, 08:06 Abdomen/GI: Exam negative for Inspection: abdomen appears normal, Bowel sounds: normal, Palpation: abdomen is soft and non-tender, Liver: no appreciated palpable abnormalities, Hernia: not appreciated, 08:06 Neuro: Orientation: is normal, appropriate for stated age, no acute changes, Mentation: is normal, Memory: is normal, Cranial nerves: grossly normal, Cerebellar function: is grossly normal, Motor: is normal, Sensation: is normal, no obvious gross deficits, appropriate Gait: not applicable Vital Signs: 07:16 BP 129 / 86; Pulse 81; Resp 14; Pulse Ox 98% on R/A; Weight 77.11 kg; Height 5 ft. 8 ss in. ; Pain 7/10; 09:15 BP 125 / 81; Pulse 67; Resp 18; Pulse Ox 100% ; db 07:16 Body Mass Index 25.85 (77.11 kg, 172.72 cm) ss 07:16 Pain Scale: Adult ss Cristopher Coma Score: 08:08 Eye Response: spontaneous(4). Motor Response: obeys commands(6). Verbal Response: jennifer oriented(5). Total: 15. MDM: 07:10 Medical Screening Exam initiated jennifer 08:08 Differential diagnosis: Nonspecific abd pain, gastritis, pancreatitis, appendicitis, jennifer viral gastroenteritis, gastroenteritis. Data reviewed: vital signs, nurses notes, lab test result(s), radiologic studies, CT scan. Consideration of Admission/Observation Escalation of care including admission/observation considered. I considered the following discharge prescriptions or medication management in the emergency department Medications were administered in the Emergency Department. See MAR. Independent interpretation of the following test(s) in the Emergency Department CT Scan: My interpretation is CT HEAD NEG. Test considered but Not performed: MRI: NO MRI BRAIN. Historians other than the Patient: PT WELL INFORMED. Care significantly affected by the following chronic conditions: PREECLAMPSIA, ANEMIA, MYEOFIROSIS. 10/01 07:12 Order name: CBC with Diff; Complete Time: 07:58 [facility] 10/01 07:12 Order name: CMP; Complete Time: 09:03 [facility] 10/01 07:12 Order name: Urinalysis w/ reflexes; Complete Time: 07:58 [facility] 10/01 07:12 Order name: Test, Urine; Complete Time: 07:58 [facility] 10/01 07:58 Order name: CT Head Brain wo Cont; Complete Time: 09:03 [facility] Administered Medications: 07:42 Drug: Ondansetron IVP 4 mg IVP once; over 2 minutes Route: IVP; Site: right antecubital;db 09:56 Follow up: Response: No adverse reaction db 07:43 Drug: NS 0.9% IV 1000 ml IV at 1 bolus Per protocol; to be given as a bolus over 60 db minutes Route: IV; Rate: 1 bolus; Site: right antecubital; 09:56 Follow up: Response: No adverse reaction; IV Status: Completed infusion; IV Intake: db 1000ml 08:14 Drug: Ketorolac IVP 30 mg IVP once Route: IVP; Site: right antecubital; bp 09:57 Follow up: Response: No adverse reaction db 08:15 Drug: Rocephin IV 1 grams IV at per protocol once; Given slow IV push per pharmacy bp instructions Route: IV; Rate: per protocol; Site: right antecubital; 09:57 Follow up: Response: No adverse reaction; IV Status: Completed infusion; IV Intake: 50mldb Disposition Summary: 10/01/24 09:04 Discharge Ordered Notes: Location: Home jennifer Problem: new jennifer Symptoms: have improved jennifer Condition: Stable jennifer Diagnosis - Headache jennifer - Nausea with vomiting, unspecified jennifer - UTI/ Urinary tract infection, site not specified jennifer Followup: jennifer - With: Private Physician - When: 2 - 3 days - Reason: Recheck today's complaints, Continuance of care, Re-evaluation by your physician Followup: jennifer - With: Claude Victoria MD - When: 2 - 3 days - Reason: Recheck today's complaints, Re-evaluation by your physician Discharge Instructions: - Discharge Summary Sheet jennifer - General Headache Without Cause jennifer - Migraine Headache jennifer - Nausea and Vomiting, Adult jennifer - Urinary Tract Infection, Adult jennifer - Nausea and Vomiting, Adult, [id number] jennifer - Urinary Tract Infection, Adult, [id number] jennifer - Migraine Headache, [id number] jennifer - General Headache Without Cause, [id number] [facility] Forms: - Medication Reconciliation Form jennifer - Antibiotic Education jennifer - Prescription Opioid Use jennifer - Patient Portal Instructions jennifer - Leadership Thank You Letter jennifer - Work release form bp Prescriptions: - Cipro 250 mg Oral tablet - take 1 tablet ORAL route every 12 hours; 14 tablet; Refills: 0, Product [facility] Selection Permitted - Ibuprofen 600 mg Oral Tablet - take 1 tablet ORAL route every 6 hours As needed take with food; 30 tablet; jennifer Refills: 0, Product Selection Permitted - Zofran 4 mg Oral Tablet - take 1 tablet ORAL route every 12 hours As needed; 20 tablet; Refills: 0, [facility] Product Selection Permitted Signatures: Dispatcher [employer] Hakan Justice MD MD cha Blanchard, Shelby, RN RN ss Oz Zhao RN RN bp Benton, Danielle, RN RN db
[2024-10-01 10:05] VITALS: BP 125/81; O2SAT 100
== END 2024-10-01 09:57 | disposition home or self-care (01) ==
LOC: ER 06:44
DX: N39.0 Urinary tract infection, site not specified (principal); R51.9 Headache, unspecified
CPT/HCPCS: 96365; 96361; 85025; 81001; 36415; 81025; 80053; 70450; 96375; 99284; 96366; J2405; J7030; J0696